=== PATIENT | male | born 1955 | race Caucasian/White ===

== ENCOUNTER 2017-03-21 11:53 | Inpatient (IN) | payer SELFPAY ==
[~2017-03-21] VITALS: Ht 185.4 cm; Wt 66.7 kg
[~2017-03-21 11:53] MED LIST: FURO40TA5 PO
[2017-03-21] MEDS ORDERED: FUROSEMIDE 40MG/4ML VIAL IV STA (13:33)
[2017-03-21] MEDS ORDERED: IPRATROPIUM/ALBUTEROL 0.5-3(2.5)MG/3ML NEB HHN ONE (13:45)
[2017-03-21 16:02] LABS: BASOPHILS % 1.5 % (0.0-2.0); EOSINOPHILS % 2.8 % (0.0-5.0); HEMATOCRIT. 41.6 % (42.0-52.0); HEMOGLOBIN. 14.1 g/dL (14.0-18.0); LYMPHOCYTES % 18.8 % (20.0-50.0); MEAN CORPUSCULAR HEMOGLOBIN 30.8 pg (28.0-32.0); MEAN CORPUSCULAR VOLUME 91.3 fL (80.0-94.0); MEAN PLATELET VOLUME 9.4 fl (7.4-10.4); MONOCYTES % 10.5 % (2.0-8.0); NEUTROPHILS % 66.4 % (40.0-76.0); PLATELET 211 x1000/uL (130-400); RED BLOOD CELL COUNT 4.56 mill/uL (4.7-6.1); RED CELL DISTRIBUTION WIDTH 14.8 % (11.6-14.6)
[2017-03-21 16:05] LABS: INR 1.2; PARTIAL THROMBOPLASTIN TIME 25.6 sec (23.4-31.0); PROTHROMBIN TIME 12.2 sec (9.4-11.6)
[2017-03-21 16:14] LABS: CARBON DIOXIDE 27 mEq/L (21-32); CHLORIDE 105 mEq/L (98-107); CREATINE KINASE 252 IU/L (39-308); TROPONIN I 0.14 ng/mL (0.00-0.04)
[2017-03-21] MEDS ORDERED: CEFTRIAXONE 1 G PREMIX 50 ML IV ONE (17:15)
[2017-03-21] MEDS ORDERED: AZITHROMYCIN 500 MG in DEXT 5% WATER 250 ML IV ONE (17:15)
[2017-03-21 21:30] VITALS: BP_SYST 111; BP_SYST 132; BP_DIAS 79; BP_DIAS 90
[2017-03-21] MEDS ORDERED: ONDANSETRON HCL 4MG/2ML VIAL IV PRN (21:30)
[2017-03-21] MEDS ORDERED: MAGNESIUM/ALUMINUM HYDROXIDE/SIMETHICONE 30ML UDC PO PRN (21:30)
[2017-03-21] MEDS ORDERED: DIPHENHYDRAMINE 50MG/ML VIAL IV PRN (21:30)
[2017-03-21] MEDS ORDERED: IPRATROPIUM/ALBUTEROL 0.5-3(2.5)MG/3ML NEB INH PRN (21:30)
[2017-03-21] MEDS ORDERED: GUAIFENESIN 200MG/10ML SUGAR FREE UDC PO PRN (21:30)
[2017-03-21] MEDS ORDERED: CLONIDINE 0.1MG TABLET PO PRN (21:30)
[2017-03-21] MEDS ORDERED: ACETAMINOPHEN 325MG TABLET PO PRN (21:30)
[2017-03-21] MEDS: FUROSEMIDE 40MG/4ML VIAL IVP SCH (22:24)
[2017-03-21] MEDS: SODIUM CHLORIDE 0.9% INJ 3ML FLUSH IVF SCH (22:25)
[2017-03-22] VITALS: BP 111/79
[2017-03-22 00:50] LABS: CLARITY URINE CLEAR (CLEAR); COLOR URINE YELLOW (YELLOW); KETONES URINE NEGATIVE (NEGATIVE); LEUKOCYTE ESTERASE URINE NEGATIVE (NEGATIVE); NITRITE URINE NEGATIVE (NEGATIVE); OCCULT BLOOD URINE NEGATIVE (NEGATIVE); PH URINE 7.5 (4.5-8.0); PROTEIN URINE NEGATIVE (NEGATIVE); SPECIFIC GRAVITY URINE 1.008 (1.005-1.030); UROBILINOGEN URINE 0.2 E.U./dL (0.2-1.0)
[2017-03-22] MEDS ORDERED: ASPI-1159 PO (01:16)
[2017-03-22 01:46] LABS: *AMPHETAMINES SCREEN URINE NEGATIVE (NEGATIVE); *BARBITURATES SCREEN URINE NEGATIVE (NEGATIVE); *BENZODIAZEPINES SCREEN URINE NEGATIVE (NEGATIVE); *COCAINE SCREEN URINE NEGATIVE (NEGATIVE); CANNABINOID URINE SCREEN NEGATIVE (NEGATIVE); METHADONE URINE SCREEN NEGATIVE (NEGATIVE); OPIATES URINE SCREEN NEGATIVE (NEGATIVE); PHENCYCLIDINE URINE SCREEN NEGATIVE (NEGATIVE)
[2017-03-22 04:00] VITALS: BP 118/82
[2017-03-22] MEDS: SODIUM CHLORIDE 0.9% INJ 3ML FLUSH IVF SCH ×2 (06:15→08:01)
[2017-03-22 08:30] VITALS: BP 136/91
[2017-03-22] MEDS ORDERED: CARVEDILOL 3.125 MG TABLET PO SCH (09:00)
[2017-03-22] MEDS ORDERED: ENOXAPARIN 40MG/0.4ML SYR SUBCUT SCH (09:00)
[2017-03-22] MEDS ORDERED: LISINOPRIL 2.5MG TABLET PO SCH (09:00)
[2017-03-22] MEDS: FUROSEMIDE 40MG/4ML VIAL IVP SCH (09:15)
[2017-03-22 12:00] VITALS: BP 122/87
[2017-03-22 16:00] VITALS: BP 127/90
[2017-03-22 16:47] VITALS: BP 127/90
[2017-03-22] MEDS ORDERED: AZITHROMYCIN 500 MG in DEXT 5% WATER 250 ML IV SCH (19:00)
== END 2017-03-22 15:45 | disposition home or self-care (01) | DRG 194 ==
LOC: ER 13:05 → 7WST 17:45 → ENRESERV 20:04
PROVIDERS: ADMIT Internal Medicine; ATTEND Internal Medicine
DX: I11.0 Hypertensive heart disease with heart failure (principal); F14.90 Cocaine use, unspecified, uncomplicated; E44.1 Mild protein-calorie malnutrition; F19.10 Other psychoactive substance abuse, uncomplicated; I50.9 Heart failure, unspecified; I50.23 Acute on chronic systolic (congestive) heart failure; Z68.1 Body mass index [BMI] 19.9 or less, adult; Z79.82 Long term (current) use of aspirin; Z79.899 Other long term (current) drug therapy
CPT/HCPCS: 36415; 71010; 80053; 80305; 81003; 82550; 83605; 83690; 83880; 84443; 84484; 85025; 85610; 85730; 87040; 87086; 93005; 93970; 94640; 96365; 96367; 96375; 99285; J0456; J0696; J1650; J1940; J7040; J7060; J7620

== ENCOUNTER 2017-05-18 09:17 | Inpatient (IN) | payer SELFPAY ==
[~2017-05-18] VITALS: Ht 180.3 cm; Wt 76.7 kg
[~2017-05-18 09:17] MED LIST changes: +ASPI-1159 PO
[2017-05-18] MEDS ORDERED: MORPHINE SULFATE 4 MG/ML CPJ (NOT FOR IM USE) IV STA (09:54)
[2017-05-18] MEDS ORDERED: ONDANSETRON HCL 4MG/2ML VIAL IV STA (09:54)
[2017-05-18] MEDS ORDERED: ASPIRIN 81MG TABLET PO STA (09:54)
[2017-05-18 10:21] LABS: BASOPHILS % 0.2 % (0.0-2.0); EOSINOPHILS % 0.2 % (0.0-5.0); HEMATOCRIT. 46.3 % (42.0-52.0); HEMOGLOBIN. 15.1 g/dL (14.0-18.0); LYMPHOCYTES % 8.1 % (20.0-50.0); MEAN CORPUSCULAR HEMOGLOBIN 29.8 pg (28.0-32.0); MEAN CORPUSCULAR VOLUME 91.2 fL (80.0-94.0); MEAN PLATELET VOLUME 8.6 fl (7.4-10.4); MONOCYTES % 12.4 % (2.0-8.0); NEUTROPHILS % 79.1 % (40.0-76.0); PLATELET 184 x1000/uL (130-400); RED BLOOD CELL COUNT 5.07 mill/uL (4.7-6.1); RED CELL DISTRIBUTION WIDTH 15.3 % (11.6-14.6)
[2017-05-18 10:38] LABS: CHLORIDE 104 mEq/L (98-107); TROPONIN I 0.02 ng/mL (0.00-0.04)
[2017-05-18 10:51] LABS: PARTIAL THROMBOPLASTIN TIME 25.4 sec (23.4-31.0); PROTHROMBIN TIME 10.8 sec (9.4-11.6)
[2017-05-18] MEDS ORDERED: FUROSEMIDE 40MG/4ML VIAL IVP ONE (11:00)
[2017-05-18] MEDS ORDERED: IPRATROPIUM/ALBUTEROL 0.5-3(2.5)MG/3ML NEB INH PRN (11:45)
[2017-05-18] MEDS ORDERED: ACETAMINOPHEN 325MG TABLET PO PRN (11:45)
[2017-05-18] MEDS ORDERED: ONDANSETRON HCL 4MG/2ML VIAL IV PRN (11:45)
[2017-05-18] MEDS ORDERED: CLONIDINE 0.1MG TABLET PO PRN (11:45)
[2017-05-18] MEDS: HYDROCODONE/ACETAMINOPHEN 5/325MG TABLET PO PRN ×2 (13:43→18:16)
[2017-05-18] MEDS ORDERED: IOHEXOL-350 100 ML BOTTLE ONE (14:16)
[2017-05-18] MEDS ORDERED: FUROSEMIDE 40MG/4ML VIAL IV SCH (16:30)
[2017-05-18 17:46] VITALS: BP 145/103
[2017-05-18] MEDS ORDERED: CARV3.1242 PO (17:52)
[2017-05-18] MEDS ORDERED: LISI2.5T47 PO (17:52)
[2017-05-18 20:00] VITALS: BP 91/53
[2017-05-18] MEDS ORDERED: ENOXAPARIN 40MG/0.4ML SYR SUBCUT SCH (21:00)
[2017-05-19] VITALS: BP 110/50
[2017-05-19 04:00] VITALS: BP 100/62
[2017-05-19] MEDS ORDERED: FUROSEMIDE 40MG/4ML VIAL IV SCH (06:00)
[2017-05-19 06:17] LABS: HEMATOCRIT. 42.9 % (42.0-52.0); HEMOGLOBIN. 14.4 g/dL (14.0-18.0); MEAN CORPUSCULAR HEMOGLOBIN 30.3 pg (28.0-32.0); MEAN CORPUSCULAR VOLUME 90.7 fL (80.0-94.0); MEAN PLATELET VOLUME 9.9 fl (7.4-10.4); PLATELET 178 x1000/uL (130-400); RED BLOOD CELL COUNT 4.73 mill/uL (4.7-6.1); RED CELL DISTRIBUTION WIDTH 15.5 % (11.6-14.6)
[2017-05-19 06:39] LABS: CHLORIDE 97 mEq/L (98-107); HDL CHOLESTEROL 67 mg/dL (40-59); LDL CHOLESTEROL 80 mg/dL (5-100); TROPONIN I 0.03 ng/mL (0.00-0.04)
[2017-05-19 08:00] VITALS: BP 104/80
[2017-05-19] MEDS ORDERED: LISINOPRIL 5MG TABLET PO SCH (09:00)
[2017-05-19 10:30] LABS: *AMPHETAMINES SCREEN URINE NEGATIVE (NEGATIVE); *BARBITURATES SCREEN URINE NEGATIVE (NEGATIVE); *BENZODIAZEPINES SCREEN URINE NEGATIVE (NEGATIVE); *COCAINE SCREEN URINE PRESUMTIVE POSITIVE (NEGATIVE); CANNABINOID URINE SCREEN NEGATIVE (NEGATIVE); METHADONE URINE SCREEN NEGATIVE (NEGATIVE); OPIATES URINE SCREEN PRESUMTIVE POSITIVE (NEGATIVE); PHENCYCLIDINE URINE SCREEN NEGATIVE (NEGATIVE)
[2017-05-19 12:00] VITALS: BP 99/74
[2017-05-19] MEDS ORDERED: ASPIRIN 81MG EC TABLET PO SCH (12:45)
[2017-05-19] MEDS ORDERED: VERAPAMIL HCL 2.5 MG/1 ML 2ML VIAL IV PRN (13:00)
[2017-05-19 15:23] LABS: PLATELET ESTIMATE NORMAL
[2017-05-19 16:00] VITALS: BP 103/60
[2017-05-19 16:38] VITALS: BP 103/60
[2017-05-19] MEDS: HYDROCODONE/ACETAMINOPHEN 5/325MG TABLET PO PRN (16:38)
[2017-05-19] MEDS ORDERED: DIGOXIN 250MCG TABLET PO SCH (18:00)
[2017-05-19] MEDS ORDERED: DILTIAZEM HCL 60MG TABLET PO SCH (18:00)
[2017-05-19] MEDS ORDERED: AMIODARONE HCL 200 MG TABLET PO SCH (21:00)
[2017-05-20] MEDS ORDERED: FUROSEMIDE 40MG/4ML VIAL IV SCH (09:00)
== END 2017-05-19 18:45 | disposition left against medical advice (07) | DRG 198 ==
LOC: ER 09:23 → 5WST 10:59 → EDBEDREQ 11:03 → ENRESERV 14:43 → CANBEDREQ 16:47 → EDBEDREQ 17:10
PROVIDERS: ADMIT Internal Medicine; ATTEND Internal Medicine
DX: I24.9 Acute ischemic heart disease, unspecified (principal); I42.9 Cardiomyopathy, unspecified; I50.9 Heart failure, unspecified; I11.0 Hypertensive heart disease with heart failure; I25.10 Atherosclerotic heart disease of native coronary artery without angina pectoris; I48.0 Paroxysmal atrial fibrillation; F14.90 Cocaine use, unspecified, uncomplicated; Z82.49 Family history of ischemic heart disease and other diseases of the circulatory system; Z86.79 Personal history of other diseases of the circulatory system; Z91.19 Patient's noncompliance with other medical treatment and regimen
CPT/HCPCS: 36415; 71045; 71275; 80053; 80061; 80305; 83690; 83880; 84484; 85025; 85610; 85730; 93005; 93306; 96374; 96375; 99285; J1650; J1940; J2270; J2405; J3490; Q9967

== ENCOUNTER 2017-05-20 19:37 | Emergency (ER) | payer SELFPAY ==
[~2017-05-20] VITALS: Ht 180.3 cm; Wt 64.0 kg
[~2017-05-20 19:37] MED LIST changes: +CARV3.1242 PO; +LISI2.5T47 PO
[2017-05-20 23:41] LABS: BASOPHILS % 0.4 % (0.0-2.0); CHLORIDE 102 mEq/L (98-107); EOSINOPHILS % 5.1 % (0.0-5.0); HEMATOCRIT. 40.7 % (42.0-52.0); HEMOGLOBIN. 13.6 g/dL (14.0-18.0); MEAN CORPUSCULAR HEMOGLOBIN 30.3 pg (28.0-32.0); MEAN CORPUSCULAR VOLUME 90.7 fL (80.0-94.0); MEAN PLATELET VOLUME 9.2 fl (7.4-10.4); MONOCYTES % 12.3 % (2.0-8.0); NEUTROPHILS % 69.2 % (40.0-76.0); PLATELET 182 x1000/uL (130-400); RED BLOOD CELL COUNT 4.48 mill/uL (4.7-6.1); RED CELL DISTRIBUTION WIDTH 15.4 % (11.6-14.6); TROPONIN I 0.06 ng/mL (0.00-0.04)
[2017-05-21] MEDS ORDERED: HYDROCODONE/ACETAMINOPHEN 5/325MG TABLET PO ONE (02:00)
[2017-05-21 02:09] VITALS: BP 163/118
== END 2017-05-21 03:11 | disposition home or self-care (01) ==
LOC: ER 19:37
DX: I48.91 Unspecified atrial fibrillation (principal); I11.0 Hypertensive heart disease with heart failure; I50.9 Heart failure, unspecified; F14.10 Cocaine abuse, uncomplicated; Z79.82 Long term (current) use of aspirin; F12.10 Cannabis abuse, uncomplicated
CPT/HCPCS: 36415; 71045; 80053; 83880; 84484; 85025; 93005; 99285

== ENCOUNTER 2018-03-08 18:04 | Inpatient (IN) | payer MEDICAID ==
[~2018-03-08] VITALS: Ht 175.3 cm; Wt 69.9 kg
[2018-03-08 20:43] LABS: BASOPHILS % 0.6 % (0.0-2.0); EOSINOPHILS % 0.3 % (0.0-5.0); HEMATOCRIT. 41.7 % (42.0-52.0); LYMPHOCYTES % 13.1 % (20.0-50.0); MEAN CORPUSCULAR VOLUME 92.3 fL (80.0-94.0); MEAN PLATELET VOLUME 9.6 fl (7.4-10.4); MONOCYTES % 8.8 % (2.0-8.0); NEUTROPHILS % 77.2 % (40.0-76.0); PLATELET 204 x1000/uL (130-400); RED BLOOD CELL COUNT 4.52 mill/uL (4.7-6.1); RED CELL DISTRIBUTION WIDTH 14.6 % (11.6-14.6)
[2018-03-08 20:49] LABS: CHLORIDE 105 mEq/L (98-107); INR 1.3; PROTHROMBIN TIME 12.9 sec (9.1-11.1)
[2018-03-08] MEDS ORDERED: PIPERACILLIN/TAZOBACTAM 3.375GM/50ML PREMIX IV STA (21:14)
[2018-03-08] MEDS ORDERED: VANCOMYCIN 1 G PREMIX 200 ML IV STA (21:14)
[2018-03-08] MEDS ORDERED: ASPIRIN 81MG TABLET PO ONE (21:15)
[2018-03-08] MEDS ORDERED: SODIUM CHLORIDE 0.9% 1000ML BAG (SEPSIS BOLUS) IV ONE (21:15)
[2018-03-08] MEDS: PIPERACILLIN/TAZ 3.375G PREMIX 50 ML IV NR ×3 (21:22→23:22)
[2018-03-08] MEDS ORDERED: FUROSEMIDE 100MG/10ML VIAL IV STA (21:52)
[2018-03-08] MEDS ORDERED: ALBUTEROL (0.083%) 2.5MG/3ML NEB HHN ONE (22:00)
[2018-03-08] MEDS ORDERED: INSULIN REGULAR (HUMULIN R) 300UNITS/3ML IV ONE (22:00)
[2018-03-08] MEDS ORDERED: CALCIUM CHLORIDE 1GM/10ML SYR IV ONE (22:00)
[2018-03-08] MEDS ORDERED: SODIUM BICARBONATE 8.4% 1 MEQ/ML 50ML SYR IV ONE (22:00)
[2018-03-08] MEDS ORDERED: DEXTROSE 50% WATER 50ML SYRINGE IV ONE (22:00)
[2018-03-08 22:40] LABS: HEPATITIS B SURFACE ANTIGEN NEGATIVE
[2018-03-08 23:10] LABS: HEPATITIS A AB IGM NEGATIVE (NEGATIVE)
[2018-03-08 23:40] VITALS: BP_SYST 114; BP_DIAS 75; BP_DIAS 78
[2018-03-09] MEDS ORDERED: GUAIFENESIN-DM 200MG-20MG/10ML UDC PO PRN (01:30)
[2018-03-09] MEDS ORDERED: ACETAMINOPHEN 325MG TABLET PO PRN (01:30)
[2018-03-09] MEDS ORDERED: DEXTROSE 50% WATER 50ML SYRINGE IV PRN (01:30)
[2018-03-09] MEDS ORDERED: IPRATROPIUM/ALBUTEROL 0.5-3(2.5)MG/3ML NEB HHN PRN (01:30)
[2018-03-09] MEDS ORDERED: HYDROCODONE/ACETAMINOPHEN 5/325MG TABLET PO PRN (01:30)
[2018-03-09] MEDS ORDERED: PIPERACILLIN/TAZ 3.375G PREMIX 50 ML IV SCH (01:30)
[2018-03-09] MEDS ORDERED: ZOLPIDEM TARTRATE 5MG TABLET PO PRN (01:30)
[2018-03-09 04:00] VITALS: BP 132/79
[2018-03-09] MEDS ORDERED: VANCOMYCIN 1 G PREMIX 200 ML IV SCH (04:00)
[2018-03-09] MEDS: BLOOD SUGAR DIAGNOSTIC STRIP TEST SCH ×4 (06:31→21:03)
[2018-03-09] MEDS: PIPERACILLIN/TAZ 3.375G PREMIX 50 ML IV SCH ×3 (06:31→17:00)
[2018-03-09 06:46] LABS: BASOPHILS % 0.7 % (0.0-2.0); HEMOGLOBIN. 12.1 g/dL (14.0-18.0); MEAN CORPUSCULAR HEMOGLOBIN 30.7 pg (28.0-32.0); MEAN CORPUSCULAR VOLUME 91.6 fL (80.0-94.0); MEAN PLATELET VOLUME 9.7 fl (7.4-10.4); MONOCYTES % 12.2 % (2.0-8.0); NEUTROPHILS % 65.1 % (40.0-76.0); PLATELET 181 x1000/uL (130-400); RED BLOOD CELL COUNT 3.93 mill/uL (4.7-6.1); RED CELL DISTRIBUTION WIDTH 14.5 % (11.6-14.6)
[2018-03-09] MEDS: INSULIN LISPRO 100 UNITS/ML SUBCUT SCH ×4 (07:07→21:00)
[2018-03-09 08:00] VITALS: BP 115/85
[2018-03-09] MEDS: FUROSEMIDE 40MG/4ML VIAL IVP SCH ×2 (08:45→17:00)
[2018-03-09] MEDS: LISINOPRIL 5MG TABLET PO SCH (08:45)
[2018-03-09] MEDS: ASPIRIN 81MG TABLET PO SCH (08:45)
[2018-03-09] MEDS: CARVEDILOL 3.125 MG TABLET PO SCH ×2 (08:46→21:00)
[2018-03-09 12:45] VITALS: BP 104/74
[2018-03-09 16:36] VITALS: BP 95/64
[2018-03-09 19:32] LABS: CREATINE KINASE MB FRACTION 3.6 ng/mL (0.5-3.6)
[2018-03-09 19:45] LABS: *AMPHETAMINES SCREEN URINE NEGATIVE (NEGATIVE); *BARBITURATES SCREEN URINE NEGATIVE (NEGATIVE); *BENZODIAZEPINES SCREEN URINE NEGATIVE (NEGATIVE); *COCAINE SCREEN URINE PRESUMTIVE POSITIVE (NEGATIVE); METHADONE URINE SCREEN NEGATIVE (NEGATIVE)
[2018-03-09 19:46] LABS: CANNABINOID URINE SCREEN NEGATIVE (NEGATIVE); OPIATES URINE SCREEN NEGATIVE (NEGATIVE); PHENCYCLIDINE URINE SCREEN NEGATIVE (NEGATIVE)
[2018-03-09 20:05] LABS: CLARITY URINE CLEAR (CLEAR); COLOR URINE YELLOW (YELLOW); KETONES URINE NEGATIVE (NEGATIVE); LEUKOCYTE ESTERASE URINE NEGATIVE (NEGATIVE); NITRITE URINE NEGATIVE (NEGATIVE); OCCULT BLOOD URINE NEGATIVE (NEGATIVE); PH URINE 6.5 (4.5-8.0); PROTEIN URINE NEGATIVE (NEGATIVE); SPECIFIC GRAVITY URINE 1.013 (1.005-1.030); UROBILINOGEN URINE 0.2 E.U./dL (0.2-1.0)
[2018-03-09] MEDS: VANCOMYCIN 1 G PREMIX 200 ML IV SCH (21:57)
[2018-03-10] MEDS: PIPERACILLIN/TAZ 3.375G PREMIX 50 ML IV SCH ×3 (00:07→11:54)
[2018-03-10] MEDS: BLOOD SUGAR DIAGNOSTIC STRIP TEST SCH ×2 (06:08→11:45)
[2018-03-10] MEDS: INSULIN LISPRO 100 UNITS/ML SUBCUT SCH ×2 (06:55→11:55)
[2018-03-10 07:36] LABS: BASOPHILS % 1.2 % (0.0-2.0); EOSINOPHILS % 1.8 % (0.0-5.0); HEMATOCRIT. 38.1 % (42.0-52.0); LYMPHOCYTES % 23.9 % (20.0-50.0); MEAN CORPUSCULAR VOLUME 91.1 fL (80.0-94.0); MEAN PLATELET VOLUME 9.8 fl (7.4-10.4); MONOCYTES % 13.1 % (2.0-8.0); PLATELET 192 x1000/uL (130-400); RED BLOOD CELL COUNT 4.19 mill/uL (4.7-6.1)
[2018-03-10 08:00] VITALS: BP 107/80
[2018-03-10] MEDS: CARVEDILOL 3.125 MG TABLET PO SCH (10:23)
[2018-03-10] MEDS: VANCOMYCIN 1 G PREMIX 200 ML IV SCH (10:23)
[2018-03-10] MEDS: FUROSEMIDE 40MG/4ML VIAL IVP SCH (10:24)
[2018-03-10] MEDS: ASPIRIN 81MG TABLET PO SCH (10:24)
[2018-03-10] MEDS: LISINOPRIL 5MG TABLET PO SCH (10:24)
[2018-03-10 12:00] VITALS: BP 90/66
[2018-03-10 14:36] VITALS: BP 116/64
[2018-03-11] MEDS ORDERED: FUROSEMIDE 40MG/4ML VIAL IVP SCH (09:00)
== END 2018-03-10 15:10 | disposition home or self-care (01) | DRG 720 ==
LOC: ER 18:04 → 5WST 22:08 → EDBEDREQ 22:11 → EDBEDREQTM 22:11 → EDBEDREQSVC 22:11 → ENRESERV 22:32
PROVIDERS: ADMIT Internal Medicine; ATTEND Internal Medicine
DX: A41.89 Other specified sepsis (principal); J96.01 Acute respiratory failure with hypoxia; I50.43 Acute on chronic combined systolic (congestive) and diastolic (congestive) heart failure; N17.9 Acute kidney failure, unspecified; R65.20 Severe sepsis without septic shock; E87.5 Hyperkalemia; R74.0 Nonspecific elevation of levels of transaminase and lactic acid dehydrogenase [LDH]; E11.9 Type 2 diabetes mellitus without complications; B97.89 Other viral agents as the cause of diseases classified elsewhere; F14.10 Cocaine abuse, uncomplicated; I07.1 Rheumatic tricuspid insufficiency; I11.0 Hypertensive heart disease with heart failure; I27.20 Pulmonary hypertension, unspecified; I42.9 Cardiomyopathy, unspecified; Z87.891 Personal history of nicotine dependence; Z91.14 Patient's other noncompliance with medication regimen; Z91.19 Patient's noncompliance with other medical treatment and regimen; Z79.82 Long term (current) use of aspirin
CPT/HCPCS: 36415; 71045; 80048; 80202; 80305; 82550; 82553; 82962; 83605; 83880; 84145; 84484; 86705; 86709; 86803; 87340; 87804; 93005; 93306; 96365; 96375; 97161; 99291; J1815; J1940; J2543; J3370; J3490; J7030; J7050; J7611

== ENCOUNTER 2018-06-05 13:29 | Inpatient (IN) | payer SELFPAY ==
[~2018-06-05] VITALS: Ht 180.3 cm; Wt 59.9 kg
[2018-06-05 16:30] LABS: BASOPHILS % 0.8 % (0.0-2.0); EOSINOPHILS % 0.8 % (0.0-5.0); HEMATOCRIT. 39.6 % (42.0-52.0); HEMOGLOBIN. 12.8 g/dL (14.0-18.0); LYMPHOCYTES % 17.4 % (20.0-50.0); MEAN CORPUSCULAR HEMOGLOBIN 28.8 pg (28.0-32.0); MEAN PLATELET VOLUME 9.1 fl (7.4-10.4); MONOCYTES % 13.1 % (2.0-8.0); NEUTROPHILS % 67.9 % (40.0-76.0); PLATELET 265 x1000/uL (130-400); RED BLOOD CELL COUNT 4.45 mill/uL (4.7-6.1); RED CELL DISTRIBUTION WIDTH 15.5 % (11.6-14.6)
[2018-06-05 16:31] LABS: CHLORIDE 106 mEq/L (98-107)
[2018-06-05] MEDS ORDERED: FUROSEMIDE 40MG/4ML VIAL IVP ONE (17:00)
[2018-06-05] MEDS ORDERED: GUAIFENESIN 200MG/10ML SUGAR FREE UDC PO PRN (17:15)
[2018-06-05] MEDS ORDERED: HYDROCODONE/ACETAMINOPHEN 5/325MG TABLET PO PRN (17:15)
[2018-06-05] MEDS ORDERED: DOCUSATE SODIUM 100MG CAPSULE PO PRN (17:15)
[2018-06-05] MEDS ORDERED: ACETAMINOPHEN 325MG TABLET PO PRN (17:15)
[2018-06-05] MEDS ORDERED: ONDANSETRON HCL 4MG/2ML INJ IV PRN (17:15)
[2018-06-05] MEDS ORDERED: DIPHENHYDRAMINE 50MG/ML VIAL IV PRN (17:15)
[2018-06-05] MEDS ORDERED: IPRATROPIUM/ALBUTEROL 0.5-3(2.5)MG/3ML NEB INH PRN (17:15)
[2018-06-05 17:32] LABS: PHOSPHORUS 3.6 mg/dL (2.5-4.9)
[2018-06-05 23:28] LABS: CREATINE KINASE 257 IU/L (39-308)
[2018-06-06 06:12] LABS: BASOPHILS % 1.1 % (0.0-2.0); EOSINOPHILS % 2.4 % (0.0-5.0); HEMOGLOBIN. 12.2 g/dL (14.0-18.0); LYMPHOCYTES % 24.6 % (20.0-50.0); MEAN CORPUSCULAR HEMOGLOBIN 28.2 pg (28.0-32.0); MEAN CORPUSCULAR VOLUME 87.7 fL (80.0-94.0); MEAN PLATELET VOLUME 9.3 fl (7.4-10.4); MONOCYTES % 12.7 % (2.0-8.0); NEUTROPHILS % 59.2 % (40.0-76.0); PLATELET 227 x1000/uL (130-400); RED BLOOD CELL COUNT 4.33 mill/uL (4.7-6.1); RED CELL DISTRIBUTION WIDTH 15.1 % (11.6-14.6)
[2018-06-06 06:20] LABS: CHLORIDE 103 mEq/L (98-107)
[2018-06-06 06:29] LABS: LDL CHOLESTEROL 90 mg/dL (5-100)
[2018-06-06 06:31] LABS: CREATINE KINASE 280 IU/L (39-308); HDL CHOLESTEROL 62 mg/dL (40-59)
[2018-06-06] MEDS ORDERED: DEXTROSE 50% WATER 50ML SYRINGE IV PRN (11:15)
[2018-06-06] MEDS ORDERED: GUAIFENESIN-DM 200MG-20MG/10ML UDC PO PRN (11:15)
[2018-06-06 12:10] LABS: CREATINE KINASE MB FRACTION 4.8 ng/mL (0.5-3.6)
[2018-06-06] MEDS ORDERED: FUROSEMIDE 40MG/4ML VIAL IV NR (12:15)
[2018-06-06 12:24] LABS: FERRITIN 34 ng/mL (22-322)
[2018-06-06] MEDS ORDERED: LISINOPRIL 5MG TABLET PO NR (12:30)
[2018-06-06] MEDS ORDERED: ENOXAPARIN 40MG/0.4ML SYR SUBCUT NR (12:30)
[2018-06-06 12:36] LABS: HEPATITIS B SURFACE ANTIGEN NEGATIVE; VITAMIN B12 SERUM 588 pg/mL (211-911)
[2018-06-06 13:05] LABS: HEPATITIS A AB IGM NEGATIVE (NEGATIVE)
[2018-06-06] MEDS: INSULIN LISPRO 100 UNITS/ML SUBCUT SCH ×3 (13:20→21:00)
[2018-06-06] MEDS: BLOOD SUGAR DIAGNOSTIC STRIP TEST SCH ×3 (13:35→21:13)
[2018-06-07 04:53] LABS: BASOPHILS % 0.7 % (0.0-2.0); EOSINOPHILS % 2.8 % (0.0-5.0); HEMATOCRIT. 40.2 % (42.0-52.0); HEMOGLOBIN. 13.2 g/dL (14.0-18.0); LYMPHOCYTES % 16.1 % (20.0-50.0); MEAN CORPUSCULAR HEMOGLOBIN 28.7 pg (28.0-32.0); MEAN CORPUSCULAR VOLUME 87.4 fL (80.0-94.0); MEAN PLATELET VOLUME 9.3 fl (7.4-10.4); NEUTROPHILS % 70.4 % (40.0-76.0); PLATELET 239 x1000/uL (130-400); RED BLOOD CELL COUNT 4.61 mill/uL (4.7-6.1); RED CELL DISTRIBUTION WIDTH 15.3 % (11.6-14.6)
[2018-06-07 04:54] LABS: CHLORIDE 106 mEq/L (98-107)
[2018-06-07 08:00] VITALS: BP 138/100
[2018-06-07 10:05] VITALS: BP 138/100
[2018-06-07] MEDS: BLOOD SUGAR DIAGNOSTIC STRIP TEST SCH ×3 (11:30→21:00)
[2018-06-07] MEDS: ASPIRIN 81MG TABLET PO SCH (11:49)
[2018-06-07] MEDS: LISINOPRIL 2.5MG TABLET PO SCH (11:49)
[2018-06-07] MEDS: ENOXAPARIN 40MG/0.4ML SYR SUBCUT SCH (11:50)
[2018-06-07] MEDS: INSULIN LISPRO 100 UNITS/ML SUBCUT SCH ×4 (11:50→21:00)
[2018-06-07] MEDS: FUROSEMIDE 40MG/4ML VIAL IV SCH (11:50)
[2018-06-07 12:00] VITALS: BP 101/67
[2018-06-07] MEDS ORDERED: PNEUMOCOCCAL 23-VAL P-SAC VAC 0.5 ML IM ONE (12:30)
[2018-06-07] MEDS ORDERED: INFLUENZA VIRUS VACCINE(AFLURIA) 0.5ML SYR IM ONE (12:30)
[2018-06-07 16:00] VITALS: BP 121/79
[2018-06-07 19:46] LABS: *AMPHETAMINES SCREEN URINE NEGATIVE (NEGATIVE); *BARBITURATES SCREEN URINE NEGATIVE (NEGATIVE); *BENZODIAZEPINES SCREEN URINE NEGATIVE (NEGATIVE); *COCAINE SCREEN URINE PRESUMTIVE POSITIVE (NEGATIVE)
[2018-06-07 19:47] LABS: CANNABINOID URINE SCREEN NEGATIVE (NEGATIVE); METHADONE URINE SCREEN NEGATIVE (NEGATIVE); OPIATES URINE SCREEN NEGATIVE (NEGATIVE); PHENCYCLIDINE URINE SCREEN NEGATIVE (NEGATIVE)
[2018-06-07 20:00] VITALS: BP 125/83
[2018-06-07] MEDS: CARVEDILOL 3.125 MG TABLET PO SCH (21:12)
[2018-06-08 00:19] VITALS: BP 117/84
[2018-06-08 04:00] VITALS: BP 113/78
[2018-06-08] MEDS: INSULIN LISPRO 100 UNITS/ML SUBCUT SCH ×2 (06:59→11:15)
[2018-06-08] MEDS: BLOOD SUGAR DIAGNOSTIC STRIP TEST SCH ×2 (06:59→11:15)
[2018-06-08 07:41] LABS: CHLORIDE 105 mEq/L (98-107)
[2018-06-08 08:00] VITALS: BP 110/71
[2018-06-08] MEDS: CARVEDILOL 3.125 MG TABLET PO SCH (08:38)
[2018-06-08] MEDS: ASPIRIN 81MG TABLET PO SCH (08:45)
[2018-06-08] MEDS: FUROSEMIDE 40MG/4ML VIAL IV SCH (08:45)
[2018-06-08] MEDS: LISINOPRIL 2.5MG TABLET PO SCH (08:46)
[2018-06-08] MEDS: ENOXAPARIN 40MG/0.4ML SYR SUBCUT SCH (11:13)
[2018-06-08] MEDS ORDERED: TAM75 MT (14:39)
[2018-06-08] MEDS ORDERED: FERR325T6 MT (14:39)
[2018-06-08 14:53] VITALS: BP 124/90
== END 2018-06-08 16:25 | disposition home or self-care (01) | DRG 194 ==
LOC: ER 13:47 → 8WST 16:56 → EDBEDREQ 16:59 → EDBEDREQTM 16:59 → ENRESERV 06-07 07:18
PROVIDERS: ADMIT Internal Medicine; ATTEND Internal Medicine
DX: I11.0 Hypertensive heart disease with heart failure (principal); I27.20 Pulmonary hypertension, unspecified; I42.9 Cardiomyopathy, unspecified; I07.1 Rheumatic tricuspid insufficiency; D50.9 Iron deficiency anemia, unspecified; E11.9 Type 2 diabetes mellitus without complications; J44.9 Chronic obstructive pulmonary disease, unspecified; E78.00 Pure hypercholesterolemia, unspecified; R74.0 Nonspecific elevation of levels of transaminase and lactic acid dehydrogenase [LDH]; E78.5 Hyperlipidemia, unspecified; J11.1 Influenza due to unidentified influenza virus with other respiratory manifestations; I50.23 Acute on chronic systolic (congestive) heart failure; I25.10 Atherosclerotic heart disease of native coronary artery without angina pectoris; Z79.84 Long term (current) use of oral hypoglycemic drugs; Z91.14 Patient's other noncompliance with medication regimen; Z91.19 Patient's noncompliance with other medical treatment and regimen; Z79.82 Long term (current) use of aspirin; Z79.899 Other long term (current) drug therapy
CPT/HCPCS: 36415; 71045; 80048; 80061; 80076; 80305; 82550; 82553; 82607; 82728; 82746; 82962; 83036; 83540; 83550; 83735; 83880; 84100; 84443; 84484; 86705; 86709; 86803; 87340; 87804; 90686; 90732; 93005; 93306; 93970; 96372; 96374; 96376; 99285; J1650; J1940

== ENCOUNTER 2019-03-12 14:00 | Emergency (ER) | payer MEDICARE, MEDICAID ==
[~2019-03-12] VITALS: Ht 180.3 cm; Wt 64.0 kg
[~2019-03-12 14:00] MED LIST changes: -ASPI-1159 PO; +ASPI-1393 PO; +FERR325T6 MT; +TAM75 MT
[2019-03-12 15:31] LABS: BASOPHILS % 0.6 % (0.0-2.0); EOSINOPHILS % 0.7 % (0.0-5.0); HEMATOCRIT. 41.6 % (42.0-52.0); HEMOGLOBIN. 13.4 g/dL (14.0-18.0); LYMPHOCYTES % 8.7 % (20.0-50.0); MEAN CORPUSCULAR HEMOGLOBIN 28.7 pg (28.0-32.0); MEAN PLATELET VOLUME 9.2 fl (7.4-10.4); MONOCYTES % 7.3 % (2.0-8.0); NEUTROPHILS % 82.7 % (40.0-76.0); PLATELET 222 x1000/uL (130-400); RED BLOOD CELL COUNT 4.68 mill/uL (4.7-6.1); RED CELL DISTRIBUTION WIDTH 14.9 % (11.6-14.6)
[2019-03-12 15:38] LABS: CHLORIDE 109 mEq/L (98-107)
[2019-03-12 15:42] LABS: ETHANOL BLOOD < 10 mg/dL
[2019-03-12 16:26] LABS: *AMPHETAMINES SCREEN URINE NEGATIVE (NEGATIVE); *BARBITURATES SCREEN URINE NEGATIVE (NEGATIVE); *BENZODIAZEPINES SCREEN URINE NEGATIVE (NEGATIVE); *COCAINE SCREEN URINE PRESUMTIVE POSITIVE (NEGATIVE); CANNABINOID URINE SCREEN NEGATIVE (NEGATIVE); METHADONE URINE SCREEN NEGATIVE (NEGATIVE); PHENCYCLIDINE URINE SCREEN NEGATIVE (NEGATIVE)
[2019-03-12 16:27] LABS: OPIATES URINE SCREEN NEGATIVE (NEGATIVE)
[2019-03-12 17:43] VITALS: BP 127/68
== END 2019-03-12 17:45 | disposition home or self-care (01) ==
LOC: ER 14:19
DX: F14.129 Cocaine abuse with intoxication, unspecified (principal); R56.9 Unspecified convulsions; I50.9 Heart failure, unspecified; Z79.82 Long term (current) use of aspirin
CPT/HCPCS: 36415; 71045; 80305; 80320; 99284; G0480

== ENCOUNTER 2019-12-10 15:23 | Inpatient (IN) | payer MEDICARE, MEDICAID ==
[~2019-12-10] VITALS: Ht 180.3 cm; Wt 62.7 kg
[~2019-12-10 15:23] MED LIST changes: -ASPI-1393 PO; +ASPI-1497 PO
[2019-12-10 16:25] LABS: BASOPHILS % 0.4 % (0.0-2.0); EOSINOPHILS % 0.2 % (0.0-5.0); HEMATOCRIT. 39.2 % (42.0-52.0); HEMOGLOBIN. 12.9 g/dL (14.0-18.0); LYMPHOCYTES % 18.3 % (20.0-50.0); MEAN CORPUSCULAR VOLUME 88.2 fL (80.0-94.0); MONOCYTES % 13.5 % (2.0-8.0); NEUTROPHILS % 67.6 % (40.0-76.0); PLATELET 140 x1000/uL (130-400); RED BLOOD CELL COUNT 4.44 mill/uL (4.7-6.1); RED CELL DISTRIBUTION WIDTH 14.6 % (11.6-14.6)
[2019-12-10 16:32] LABS: CHLORIDE 105 mEq/L (98-107)
[2019-12-10] MEDS ORDERED: FUROSEMIDE 20MG/2ML VIAL IVP ONE (17:15)
[2019-12-10 22:45] VITALS: BP 116/85
[2019-12-10] MEDS ORDERED: HYDROCODONE/ACETAMINOPHEN 5/325MG TABLET PO PRN (23:45)
[2019-12-11] VITALS: BP 116/85
[2019-12-11 04:00] VITALS: BP_SYST 116; BP_SYST 99; BP_DIAS 77; BP_DIAS 85
[2019-12-11 04:49] LABS: CHLORIDE 107 mEq/L (98-107)
[2019-12-11 05:42] LABS: BASOPHILS % 0.5 % (0.0-2.0); EOSINOPHILS % 1.3 % (0.0-5.0); HEMATOCRIT. 37.5 % (42.0-52.0); HEMOGLOBIN. 12.3 g/dL (14.0-18.0); LYMPHOCYTES % 25.5 % (20.0-50.0); MEAN CORPUSCULAR VOLUME 88.2 fL (80.0-94.0); MEAN PLATELET VOLUME 10.3 fl (7.4-10.4); MONOCYTES % 13.7 % (2.0-8.0); PLATELET 133 x1000/uL (130-400); RED BLOOD CELL COUNT 4.25 mill/uL (4.7-6.1); RED CELL DISTRIBUTION WIDTH 14.5 % (11.6-14.6)
[2019-12-11 08:00] VITALS: BP 112/54
[2019-12-11] MEDS: FUROSEMIDE 40MG/4ML VIAL IVP SCH ×2 (08:56→17:25)
[2019-12-11] MEDS: LISINOPRIL 20MG TABLET PO SCH (08:56)
[2019-12-11] MEDS: CARVEDILOL 12.5MG TABLET PO SCH ×2 (08:58→20:28)
[2019-12-11] MEDS: ASPIRIN 325MG EC TABLET PO SCH (08:58)
[2019-12-11] MEDS: OMEPRAZOLE 20MG CAPSULE EXTENDED RELEASE PO SCH (08:59)
[2019-12-11] MEDS: ENOXAPARIN 40MG/0.4ML SYR SUBCUT SCH (08:59)
[2019-12-11] MEDS ORDERED: FUROSEMIDE 40MG/4ML VIAL IVP SCH (09:00)
[2019-12-11 12:00] VITALS: BP 112/54
[2019-12-11 15:38] LABS: *AMPHETAMINES SCREEN URINE NEGATIVE (NEGATIVE); *BARBITURATES SCREEN URINE NEGATIVE (NEGATIVE); *BENZODIAZEPINES SCREEN URINE NEGATIVE (NEGATIVE); *COCAINE SCREEN URINE PRESUMTIVE POSITIVE (NEGATIVE)
[2019-12-11 15:39] LABS: METHADONE URINE SCREEN NEGATIVE (NEGATIVE); OPIATES URINE SCREEN NEGATIVE (NEGATIVE); PHENCYCLIDINE URINE SCREEN NEGATIVE (NEGATIVE)
[2019-12-11 15:40] LABS: CANNABINOID URINE SCREEN NEGATIVE (NEGATIVE)
[2019-12-11 16:00] VITALS: BP 100/68
[2019-12-11 20:17] VITALS: BP 99/69
[2019-12-12] VITALS: BP 94/68
[2019-12-12 04:00] VITALS: BP 96/67
[2019-12-12] MEDS: OMEPRAZOLE 20MG CAPSULE EXTENDED RELEASE PO SCH (06:48)
[2019-12-12] MEDS: LISINOPRIL 20MG TABLET PO SCH (08:56)
[2019-12-12] MEDS: CARVEDILOL 12.5MG TABLET PO SCH ×2 (08:58→21:00)
[2019-12-12] MEDS: ASPIRIN 325MG EC TABLET PO SCH (09:14)
[2019-12-12] MEDS: ENOXAPARIN 40MG/0.4ML SYR SUBCUT SCH (09:14)
[2019-12-12] MEDS: FUROSEMIDE 40MG/4ML VIAL IVP SCH (09:14)
[2019-12-12 12:00] VITALS: BP 104/74
[2019-12-12 15:55] VITALS: BP 98/76
[2019-12-12 20:00] VITALS: BP 100/69
[2019-12-13] VITALS: BP 120/76
[2019-12-13 04:00] VITALS: BP 113/68
[2019-12-13 08:00] VITALS: BP 124/75
[2019-12-13] MEDS ORDERED: FUROSEMIDE 40MG/4ML VIAL IVP SCH (08:00)
[2019-12-13] MEDS: ASPIRIN 325MG EC TABLET PO SCH (08:32)
[2019-12-13] MEDS: CARVEDILOL 12.5MG TABLET PO SCH (08:32)
[2019-12-13] MEDS: ENOXAPARIN 40MG/0.4ML SYR SUBCUT SCH (08:33)
[2019-12-13] MEDS ORDERED: FAMOTIDINE 20MG TABLET PO SCH (09:00)
[2019-12-13] MEDS ORDERED: LISINOPRIL 10MG TABLET PO SCH ×2 (09:00→13:30)
[2019-12-13] MEDS ORDERED: COR12 PO (11:56)
[2019-12-13] MEDS ORDERED: FURO40TA5 PO (11:56)
[2019-12-13 12:27] VITALS: BP 121/70
== END 2019-12-13 15:20 | disposition home or self-care (01) | DRG 291 ==
LOC: ER 15:23 → 7WST 18:49 → EDBEDREQ 19:17 → EDBEDREQTM 19:17 → ENRESERV 21:18 → 5WST 12-11 21:02
PROVIDERS: ADMIT Internal Medicine; ATTEND Internal Medicine
DX: I11.0 Hypertensive heart disease with heart failure (principal); N17.0 Acute kidney failure with tubular necrosis; I24.8 Other forms of acute ischemic heart disease; E87.1 Hypo-osmolality and hyponatremia; Z68.1 Body mass index [BMI] 19.9 or less, adult; I50.23 Acute on chronic systolic (congestive) heart failure; I42.9 Cardiomyopathy, unspecified; D64.9 Anemia, unspecified; E11.9 Type 2 diabetes mellitus without complications; E78.5 Hyperlipidemia, unspecified; I27.20 Pulmonary hypertension, unspecified; I95.9 Hypotension, unspecified; F14.90 Cocaine use, unspecified, uncomplicated; Z79.82 Long term (current) use of aspirin; Z79.899 Other long term (current) drug therapy; Z79.84 Long term (current) use of oral hypoglycemic drugs; Z86.19 Personal history of other infectious and parasitic diseases; G90.8 Other disorders of autonomic nervous system
CPT/HCPCS: 36415; 71045; 80048; 80053; 80305; 83880; 84484; 85025; 87426; 93005; 93306; 97162; 99285; J1650; J1940

== ENCOUNTER 2021-01-15 13:33 | Inpatient (IN) | payer MEDICARE, MEDICAID ==
[~2021-01-15] VITALS: Ht 153.9 cm; Wt 75.8 kg
[~2021-01-15 13:33] MED LIST changes: -CARV3.1242 PO; +COR12 PO; -TAM75 MT
[2021-01-15 14:46] LABS: BASOPHILS % 0.4 % (0.0-2.0); EOSINOPHILS % 0.3 % (0.0-5.0); HEMATOCRIT. 46.3 % (42.0-52.0); HEMOGLOBIN. 15.3 g/dL (14.0-18.0); MEAN CORPUSCULAR HEMOGLOBIN 31.5 pg (28.0-32.0); MEAN CORPUSCULAR VOLUME 95.3 fL (80.0-94.0); MEAN PLATELET VOLUME 9.2 fl (7.4-10.4); MONOCYTES % 9.5 % (2.0-8.0); NEUTROPHILS % 77.8 % (40.0-76.0); PLATELET 201 x1000/uL (130-400); RED BLOOD CELL COUNT 4.86 mill/uL (4.7-6.1); RED CELL DISTRIBUTION WIDTH 17.7 % (11.6-14.6)
[2021-01-15 14:54] LABS: CHLORIDE 106 mEq/L (98-107)
[2021-01-15] MEDS ORDERED: FUROSEMIDE 40MG/4ML VIAL IVP ONE (15:15)
[2021-01-15 20:00] VITALS: BP 158/95
[2021-01-15] MEDS ORDERED: CLONIDINE 0.1MG TABLET PO PRN (21:00)
[2021-01-15] MEDS ORDERED: MAGNESIUM/ALUMINUM HYDROXIDE/SIMETHICONE 30ML UDC PO PRN (21:00)
[2021-01-15] MEDS ORDERED: ZOLPIDEM TARTRATE 5MG TABLET PO PRN (21:00)
[2021-01-15] MEDS ORDERED: ACETAMINOPHEN 325MG TABLET PO PRN ×2 (21:00)
[2021-01-15] MEDS ORDERED: ONDANSETRON HCL 4MG/2ML INJ IV PRN (21:00)
[2021-01-15] MEDS ORDERED: MAGNESIUM HYDROXIDE 400MG/5ML 30ML UDC PO PRN (21:00)
[2021-01-15] MEDS: INSULIN LISPRO 100 UNITS/ML SUBCUT SCH (21:00)
[2021-01-15] MEDS ORDERED: DIPHENHYDRAMINE 50MG/ML VIAL IV PRN (21:00)
[2021-01-15] MEDS: BLOOD SUGAR DIAGNOSTIC STRIP TEST SCH (21:00)
[2021-01-15] MEDS ORDERED: DEXTROSE 50% WATER 50ML SYRINGE IV PRN (21:00)
[2021-01-15] MEDS: SODIUM CHLORIDE 0.9% INJ 3ML FLUSH IVF SCH (22:39)
[2021-01-15] MEDS: FAMOTIDINE 20MG TABLET PO SCH (22:40)
[2021-01-15] MEDS: CARVEDILOL 12.5MG TABLET PO SCH (22:40)
[2021-01-15] MEDS: FUROSEMIDE 40MG/4ML VIAL IVP SCH (22:40)
[2021-01-15] MEDS: LISINOPRIL 10MG TABLET PO SCH (22:41)
[2021-01-15] MEDS: ENOXAPARIN 40MG/0.4ML SYR SUBCUT SCH (22:43)
[2021-01-16] VITALS (7 sets, daily range): BP systolic 98–158; BP diastolic 65–99
[2021-01-16] MEDS ORDERED: SACU1TAB PO (01:55)
[2021-01-16] MEDS ORDERED: POTA-189 PO (01:56)
[2021-01-16] MEDS: INSULIN LISPRO 100 UNITS/ML SUBCUT SCH ×4 (06:16→20:43)
[2021-01-16] MEDS: BLOOD SUGAR DIAGNOSTIC STRIP TEST SCH ×4 (06:17→20:43)
[2021-01-16] MEDS: SODIUM CHLORIDE 0.9% INJ 3ML FLUSH IVF SCH ×3 (06:27→21:20)
[2021-01-16] MEDS: ASPIRIN 81MG EC TABLET PO SCH (09:07)
[2021-01-16] MEDS: LISINOPRIL 10MG TABLET PO SCH ×2 (09:07→21:19)
[2021-01-16] MEDS: FUROSEMIDE 40MG/4ML VIAL IVP SCH ×2 (09:07→21:18)
[2021-01-16] MEDS: CARVEDILOL 12.5MG TABLET PO SCH ×2 (09:07→21:19)
[2021-01-16] MEDS ORDERED: INFLUENZA VACCINE 05/PF 0.5 ML SYRINGE IM ONE (12:00)
[2021-01-16] MEDS: FAMOTIDINE 20MG TABLET PO SCH (21:18)
[2021-01-16] MEDS: ENOXAPARIN 40MG/0.4ML SYR SUBCUT SCH (21:18)
[2021-01-17] VITALS: BP 114/84
[2021-01-17 04:00] VITALS: BP 110/68
[2021-01-17] MEDS: SODIUM CHLORIDE 0.9% INJ 3ML FLUSH IVF SCH ×2 (06:49→14:09)
[2021-01-17] MEDS: BLOOD SUGAR DIAGNOSTIC STRIP TEST SCH ×3 (07:37→17:16)
[2021-01-17] MEDS: INSULIN LISPRO 100 UNITS/ML SUBCUT SCH ×3 (07:37→17:17)
[2021-01-17 08:00] VITALS: BP 122/87
[2021-01-17] MEDS: FUROSEMIDE 40MG/4ML VIAL IVP SCH (08:14)
[2021-01-17] MEDS: ASPIRIN 81MG EC TABLET PO SCH (08:14)
[2021-01-17] MEDS: CARVEDILOL 12.5MG TABLET PO SCH (08:15)
[2021-01-17] MEDS: LISINOPRIL 10MG TABLET PO SCH (08:15)
[2021-01-17 11:54] VITALS: BP 107/66
[2021-01-17 16:00] VITALS: BP 105/89
[2021-01-17 16:33] VITALS: BP 107/66
== END 2021-01-17 18:50 | disposition home or self-care (01) | DRG 291 ==
LOC: ER 13:33 → 8WST 17:02 → EDBEDREQ 17:07 → EDBEDREQTM 17:07 → ENRESERV 18:39
PROVIDERS: ADMIT Internal Medicine; ATTEND Internal Medicine
DX: I13.0 Hypertensive heart and chronic kidney disease with heart failure and stage 1 through stage 4 chronic kidney disease, or unspecified chronic kidney disease (principal); I50.23 Acute on chronic systolic (congestive) heart failure; E43 Unspecified severe protein-calorie malnutrition; I42.9 Cardiomyopathy, unspecified; I27.20 Pulmonary hypertension, unspecified; I48.91 Unspecified atrial fibrillation; Z20.822 Contact with and (suspected) exposure to COVID-19; N18.2 Chronic kidney disease, stage 2 (mild); E87.5 Hyperkalemia; Z59.00 Homelessness unspecified; Z87.891 Personal history of nicotine dependence; Z91.19 Patient's noncompliance with other medical treatment and regimen; Z79.899 Other long term (current) drug therapy; Z79.82 Long term (current) use of aspirin; Z82.49 Family history of ischemic heart disease and other diseases of the circulatory system; Z68.32 Body mass index [BMI] 32.0-32.9, adult
CPT/HCPCS: 36415; 71045; 80053; 82962; 83036; 83880; 84132; 84484; 85025; 87426; 90686; 93005; 93306; 93970; 99285; J1650; J1940

== ENCOUNTER 2021-02-22 16:33 | Inpatient (IN) | payer MEDICARE, MEDICAID ==
[~2021-02-22] VITALS: Ht 180.3 cm; Wt 69.1 kg
[~2021-02-22 16:33] MED LIST changes: -LISI2.5T47 PO; +POTA-189 PO; +SACU1TAB PO
[2021-02-22] MEDS ORDERED: FUROSEMIDE 40MG/4ML VIAL IVP NR (17:15)
[2021-02-22 17:34] LABS: BASOPHILS % 0.7 % (0.0-2.0); EOSINOPHILS % 1.6 % (0.0-5.0); HEMATOCRIT. 42.8 % (42.0-52.0); HEMOGLOBIN. 13.9 g/dL (14.0-18.0); LYMPHOCYTES % 13.5 % (20.0-50.0); MEAN CORPUSCULAR HEMOGLOBIN 30.8 pg (28.0-32.0); MEAN CORPUSCULAR VOLUME 95.2 fL (80.0-94.0); MEAN PLATELET VOLUME 8.9 fl (7.4-10.4); MONOCYTES % 10.8 % (2.0-8.0); NEUTROPHILS % 73.4 % (40.0-76.0); PLATELET 179 x1000/uL (130-400); RED CELL DISTRIBUTION WIDTH 15.6 % (11.6-14.6)
[2021-02-22 17:38] LABS: CHLORIDE 107 mEq/L (98-107)
[2021-02-23 00:15] VITALS: BP 134/95
[2021-02-23] MEDS ORDERED: CLONIDINE 0.1MG TABLET PO PRN (01:30)
[2021-02-23] MEDS ORDERED: HYDROCODONE/ACETAMINOPHEN 5/325MG TABLET PO PRN (01:30)
[2021-02-23] MEDS ORDERED: NALOXONE HCL 0.4 MG/ML 1ML VIAL IV PRN (02:00)
[2021-02-23] MEDS ORDERED: ACETAMINOPHEN 325MG TABLET PO PRN (02:00)
[2021-02-23] MEDS: IPRATROPIUM/ALBUTEROL 0.5-3(2.5)MG/3ML NEB HHN SCH ×4 (03:33→20:51)
[2021-02-23 04:02] VITALS: BP 121/87
[2021-02-23 06:41] LABS: HEMOGLOBIN. 12.5 g/dL (14.0-18.0); LYMPHOCYTES % 18.2 % (20.0-50.0); MEAN CORPUSCULAR VOLUME 93.8 fL (80.0-94.0); MEAN PLATELET VOLUME 9.5 fl (7.4-10.4); MONOCYTES % 11.4 % (2.0-8.0); NEUTROPHILS % 66.4 % (40.0-76.0); PLATELET 156 x1000/uL (130-400); RED BLOOD CELL COUNT 4.05 mill/uL (4.7-6.1); RED CELL DISTRIBUTION WIDTH 15.3 % (11.6-14.6)
[2021-02-23 08:19] VITALS: BP 122/92
[2021-02-23] MEDS: FUROSEMIDE 40MG/4ML VIAL IVP SCH ×2 (08:48→20:26)
[2021-02-23] MEDS: ASPIRIN 81MG EC TABLET PO SCH (08:48)
[2021-02-23] MEDS ORDERED: ENOXAPARIN 40MG/0.4ML SYR SUBCUT SCH (09:00)
[2021-02-23] MEDS ORDERED: MEDICATION NOT ON FORMULARY EA (Sacubitril/Valsartan (Entresto 24 mg-26 mg Tablet) 1 EAC PO SCH (09:00)
[2021-02-23] MEDS ORDERED: CARVEDILOL 12.5MG TABLET PO SCH (09:00)
[2021-02-23 12:26] VITALS: BP 102/74
[2021-02-23 16:10] VITALS: BP 128/70
[2021-02-23] MEDS: AMIODARONE HCL 200 MG TABLET PO SCH (17:23)
[2021-02-23] MEDS: APIXABAN 5 MG TABLET PO SCH (17:23)
[2021-02-23 20:00] VITALS: BP 114/85
[2021-02-23] MEDS: CARVEDILOL 6.25 MG TABLET PO SCH (20:26)
[2021-02-24] VITALS: BP 100/75
[2021-02-24] MEDS: IPRATROPIUM/ALBUTEROL 0.5-3(2.5)MG/3ML NEB HHN SCH ×5 (03:20→21:24)
[2021-02-24 04:00] VITALS: BP 117/83
[2021-02-24 08:12] VITALS: BP 126/88
[2021-02-24 12:18] VITALS: BP 110/72
[2021-02-24] MEDS: ASPIRIN 81MG EC TABLET PO SCH (12:58)
[2021-02-24] MEDS: CARVEDILOL 6.25 MG TABLET PO SCH ×2 (12:59→20:55)
[2021-02-24] MEDS: APIXABAN 5 MG TABLET PO SCH ×2 (12:59→16:30)
[2021-02-24] MEDS: AMIODARONE HCL 200 MG TABLET PO SCH ×3 (13:00→16:30)
[2021-02-24] MEDS: FUROSEMIDE 40MG/4ML VIAL IVP SCH ×2 (13:00→20:55)
[2021-02-24 16:07] VITALS: BP 128/78
[2021-02-24 20:00] VITALS: BP 122/96
[2021-02-25] VITALS: BP 110/72
[2021-02-25 04:00] VITALS: BP 109/82
[2021-02-25 06:17] LABS: BASOPHILS % 0.7 % (0.0-2.0); EOSINOPHILS % 5.2 % (0.0-5.0); HEMATOCRIT. 39.9 % (42.0-52.0); HEMOGLOBIN. 13.3 g/dL (14.0-18.0); LYMPHOCYTES % 18.8 % (20.0-50.0); MEAN CORPUSCULAR HEMOGLOBIN 31.6 pg (28.0-32.0); MEAN CORPUSCULAR VOLUME 94.4 fL (80.0-94.0); MEAN PLATELET VOLUME 9.5 fl (7.4-10.4); MONOCYTES % 11.3 % (2.0-8.0); PLATELET 156 x1000/uL (130-400); RED BLOOD CELL COUNT 4.22 mill/uL (4.7-6.1); RED CELL DISTRIBUTION WIDTH 15.5 % (11.6-14.6)
[2021-02-25] MEDS: IPRATROPIUM/ALBUTEROL 0.5-3(2.5)MG/3ML NEB HHN SCH ×3 (08:31→17:29)
[2021-02-25 08:39] VITALS: BP 128/100
[2021-02-25] MEDS: FUROSEMIDE 40MG/4ML VIAL IVP SCH ×2 (08:42→21:46)
[2021-02-25] MEDS: CARVEDILOL 6.25 MG TABLET PO SCH ×2 (08:42→21:46)
[2021-02-25] MEDS: ASPIRIN 81MG EC TABLET PO SCH (08:42)
[2021-02-25] MEDS: AMIODARONE HCL 200 MG TABLET PO SCH ×3 (08:43→17:32)
[2021-02-25] MEDS: APIXABAN 5 MG TABLET PO SCH ×2 (08:46→17:32)
[2021-02-25 12:21] VITALS: BP 118/87
[2021-02-25 16:40] VITALS: BP 108/73
[2021-02-25] MEDS ORDERED: METOLAZONE 2.5MG TABLET PO NR (17:45)
[2021-02-25 20:00] VITALS: BP 110/70
[2021-02-25 20:29] LABS: *AMPHETAMINES SCREEN URINE NEGATIVE (NEGATIVE); *BARBITURATES SCREEN URINE NEGATIVE (NEGATIVE); *BENZODIAZEPINES SCREEN URINE NEGATIVE (NEGATIVE); *COCAINE SCREEN URINE PRESUMTIVE POSITIVE (NEGATIVE)
[2021-02-25 20:30] LABS: CANNABINOID URINE SCREEN NEGATIVE (NEGATIVE); METHADONE URINE SCREEN NEGATIVE (NEGATIVE); OPIATES URINE SCREEN NEGATIVE (NEGATIVE); PHENCYCLIDINE URINE SCREEN NEGATIVE (NEGATIVE)
[2021-02-26] VITALS: BP 113/68
[2021-02-26 04:00] VITALS: BP 106/76
[2021-02-26 08:00] VITALS: BP 122/87
[2021-02-26] MEDS: IPRATROPIUM/ALBUTEROL 0.5-3(2.5)MG/3ML NEB HHN SCH ×2 (08:13→13:26)
[2021-02-26] MEDS: FUROSEMIDE 40MG/4ML VIAL IVP SCH (09:08)
[2021-02-26] MEDS: APIXABAN 5 MG TABLET PO SCH (09:10)
[2021-02-26] MEDS: CARVEDILOL 6.25 MG TABLET PO SCH (09:10)
[2021-02-26] MEDS: ASPIRIN 81MG EC TABLET PO SCH (09:10)
[2021-02-26] MEDS: AMIODARONE HCL 200 MG TABLET PO SCH ×2 (09:10→12:50)
[2021-02-26] MEDS ORDERED: DIATR MEGLU/DIATRIZOATE SOLN 30ML PO NR (11:00)
[2021-02-26 12:00] VITALS: BP 102/70
[2021-02-26] MEDS ORDERED: IOHEXOL-300 100 ML BOTTLE ONE (15:13)
[2021-02-26] MEDS ORDERED: LACTULOSE 20G/30ML UDC PO NR (15:15)
[2021-02-26] MEDS ORDERED: FURO40TA5 PO ×2 (15:32→16:05)
[2021-02-26 16:00] VITALS: BP 114/90
[2021-02-26] MEDS ORDERED: COR6 PO (16:05)
[2021-02-26] MEDS ORDERED: APIX2.5T PO (16:05)
[2021-02-26] MEDS ORDERED: DOCU-138 MT (16:05)
[2021-02-26] MEDS ORDERED: AMI2 PO (16:05)
[2021-02-26] MEDS ORDERED: LOSA25TA26 MT (16:05)
[2021-02-26 16:19] LABS: INR 1.3; PROTHROMBIN TIME 13.6 sec (9.6-11.0)
[2021-02-26 16:47] VITALS: BP 114/90
[2021-02-26] MEDS ORDERED: APIXABAN 2.5 MG TABLET PO SCH (17:00)
[2021-02-26] MEDS ORDERED: AMIODARONE HCL 200 MG TABLET PO SCH (17:50)
== END 2021-02-26 17:45 | disposition home or self-care (01) | DRG 291 ==
LOC: ER 16:33 → 6WST 19:06 → ENRESERV 22:21
PROVIDERS: ADMIT Internal Medicine; ATTEND Internal Medicine
DX: I11.0 Hypertensive heart disease with heart failure (principal); J96.01 Acute respiratory failure with hypoxia; I50.23 Acute on chronic systolic (congestive) heart failure; E43 Unspecified severe protein-calorie malnutrition; K76.6 Portal hypertension; I42.9 Cardiomyopathy, unspecified; F17.200 Nicotine dependence, unspecified, uncomplicated; I48.91 Unspecified atrial fibrillation; N28.9 Disorder of kidney and ureter, unspecified; I27.20 Pulmonary hypertension, unspecified; J44.9 Chronic obstructive pulmonary disease, unspecified; K74.60 Unspecified cirrhosis of liver; F14.90 Cocaine use, unspecified, uncomplicated; Z79.82 Long term (current) use of aspirin; Z79.899 Other long term (current) drug therapy; Z82.49 Family history of ischemic heart disease and other diseases of the circulatory system; Z59.00 Homelessness unspecified; Z68.21 Body mass index [BMI] 21.0-21.9, adult; Z91.19 Patient's noncompliance with other medical treatment and regimen; Z71.51 Drug abuse counseling and surveillance of drug abuser
CPT/HCPCS: 36415; 71045; 74177; 76700; 80048; 80053; 80305; 83880; 84484; 85025; 93005; 93306; 94640; 99285; J1650; J1940; Q9963; Q9967

== ENCOUNTER 2021-04-05 12:17 | Inpatient (IN) | payer MEDICARE, MEDICAID ==
[~2021-04-05] VITALS: Ht 180.3 cm; Wt 87.1 kg
[~2021-04-05 12:17] MED LIST changes: +AMI2 PO; +APIX2.5T PO; +COR6 PO; +DOCU-138 MT; +LOSA25TA26 MT; -SACU1TAB PO
[2021-04-05 17:23] LABS: CHLORIDE 111 mEq/L (98-107)
[2021-04-05 17:24] LABS: BASOPHILS % 0.8 % (0.0-2.0); EOSINOPHILS % 1.5 % (0.0-5.0); HEMATOCRIT. 45.5 % (42.0-52.0); HEMOGLOBIN. 14.5 g/dL (14.0-18.0); MEAN CORPUSCULAR HEMOGLOBIN 29.8 pg (28.0-32.0); MEAN CORPUSCULAR VOLUME 93.5 fL (80.0-94.0); MEAN PLATELET VOLUME 8.8 fl (7.4-10.4); MONOCYTES % 9.7 % (2.0-8.0); PLATELET 247 x1000/uL (130-400); RED BLOOD CELL COUNT 4.86 mill/uL (4.7-6.1); RED CELL DISTRIBUTION WIDTH 15.8 % (11.6-14.6)
[2021-04-05] MEDS ORDERED: FUROSEMIDE 40MG/4ML VIAL IVP ONE (17:45)
[2021-04-05] MEDS ORDERED: ASPIRIN 81MG TABLET PO ONE (19:15)
[2021-04-05] MEDS ORDERED: MAGNESIUM/ALUMINUM HYDROXIDE/SIMETHICONE 30ML UDC PO PRN (19:30)
[2021-04-05] MEDS ORDERED: CLONIDINE 0.1MG TABLET PO PRN (19:30)
[2021-04-05] MEDS ORDERED: GUAIFENESIN 200MG/10ML SUGAR FREE UDC PO PRN (19:30)
[2021-04-05] MEDS ORDERED: ONDANSETRON HCL 4MG/2ML INJ IV PRN (19:30)
[2021-04-05] MEDS ORDERED: DIPHENHYDRAMINE 50MG/ML VIAL IV PRN (19:30)
[2021-04-05] MEDS ORDERED: ACETAMINOPHEN 325MG TABLET PO PRN ×2 (19:30)
[2021-04-05] MEDS ORDERED: ZOLPIDEM TARTRATE 5MG TABLET PO PRN (19:30)
[2021-04-05] MEDS: FUROSEMIDE 40MG/4ML VIAL IVP SCH (20:56)
[2021-04-05] MEDS: SODIUM CHLORIDE 0.9% INJ 3ML FLUSH IVF SCH (22:19)
[2021-04-06] MEDS: IPRATROPIUM/ALBUTEROL 0.5-3(2.5)MG/3ML NEB HHN PRN ×2 (02:28→08:57)
[2021-04-06] MEDS ORDERED: LISI10TA26 PO (02:33)
[2021-04-06] MEDS ORDERED: APIX5TAB PO (02:33)
[2021-04-06] MEDS ORDERED: OMEP10CA5 PO (02:33)
[2021-04-06] MEDS ORDERED: FURO-151 PO (02:33)
[2021-04-06 02:36] VITALS: BP 118/72
[2021-04-06 04:00] VITALS: BP 109/88
[2021-04-06] MEDS ORDERED: INFLUENZA VACCINE 05/PF 0.5 ML SYRINGE IM ONE (04:15)
[2021-04-06] MEDS: FUROSEMIDE 40MG/4ML VIAL IVP SCH ×2 (06:45→17:00)
[2021-04-06] MEDS: SODIUM CHLORIDE 0.9% INJ 3ML FLUSH IVF SCH ×3 (06:45→22:17)
[2021-04-06 08:00] VITALS: BP 118/83
[2021-04-06] MEDS ORDERED: LISINOPRIL 10MG TABLET PO SCH (09:00)
[2021-04-06] MEDS ORDERED: AMIODARONE HCL 200 MG TABLET PO SCH (09:00)
[2021-04-06] MEDS ORDERED: APIXABAN 2.5 MG TABLET PO SCH (09:00)
[2021-04-06] MEDS: APIXABAN 5 MG TABLET PO SCH ×2 (09:26→17:00)
[2021-04-06] MEDS: ASPIRIN 81MG EC TABLET PO SCH (09:26)
[2021-04-06 12:00] VITALS: BP 121/71
[2021-04-06 12:47] LABS: *AMPHETAMINES SCREEN URINE NEGATIVE (NEGATIVE); *BARBITURATES SCREEN URINE NEGATIVE (NEGATIVE); *BENZODIAZEPINES SCREEN URINE NEGATIVE (NEGATIVE)
[2021-04-06 12:48] LABS: *COCAINE SCREEN URINE PRESUMTIVE POSITIVE (NEGATIVE); CANNABINOID URINE SCREEN NEGATIVE (NEGATIVE); METHADONE URINE SCREEN NEGATIVE (NEGATIVE); OPIATES URINE SCREEN NEGATIVE (NEGATIVE); PHENCYCLIDINE URINE SCREEN NEGATIVE (NEGATIVE)
[2021-04-06] MEDS: SPIRONOLACTONE 25MG TABLET PO SCH (13:03)
[2021-04-06] MEDS: GUAIFENESIN/CODEINE 200-20MG/10ML UDC PO PRN ×2 (15:37→21:14)
[2021-04-06 16:00] VITALS: BP 118/75
[2021-04-06 20:00] VITALS: BP 109/61
[2021-04-06] MEDS: ATORVASTATIN CALCIUM 20MG TABLET PO SCH (20:39)
[2021-04-06] MEDS: CARVEDILOL 6.25 MG TABLET PO SCH (21:00)
[2021-04-07] VITALS: BP 107/68
[2021-04-07 04:00] VITALS: BP 111/97
[2021-04-07] MEDS: FUROSEMIDE 40MG/4ML VIAL IVP SCH (06:35)
[2021-04-07] MEDS: SODIUM CHLORIDE 0.9% INJ 3ML FLUSH IVF SCH ×3 (06:40→21:40)
[2021-04-07 08:00] VITALS: BP 94/51
[2021-04-07] MEDS: CARVEDILOL 6.25 MG TABLET PO SCH (09:00)
[2021-04-07] MEDS: ASPIRIN 81MG EC TABLET PO SCH (09:15)
[2021-04-07] MEDS: APIXABAN 5 MG TABLET PO SCH ×2 (09:16→16:52)
[2021-04-07] MEDS: AMIODARONE HCL 200 MG TABLET PO SCH (09:16)
[2021-04-07] MEDS: SPIRONOLACTONE 25MG TABLET PO SCH (09:16)
[2021-04-07] MEDS ORDERED: INFLUENZA VACCINE 05/PF 0.5 ML SYRINGE IM ONE (10:00)
[2021-04-07 12:00] VITALS: BP 124/70
[2021-04-07 16:00] VITALS: BP 111/74
[2021-04-07 20:00] VITALS: BP 125/68
[2021-04-07] MEDS: CARVEDILOL 3.125 MG TABLET PO SCH (21:19)
[2021-04-07] MEDS: ATORVASTATIN CALCIUM 20MG TABLET PO SCH (21:19)
[2021-04-07] MEDS: GUAIFENESIN/CODEINE 200-20MG/10ML UDC PO PRN (21:20)
[2021-04-08] VITALS: BP 93/53
[2021-04-08 04:00] VITALS: BP 109/84
[2021-04-08 08:00] VITALS: BP 115/72
[2021-04-08 08:26] VITALS: BP 115/72
[2021-04-08] MEDS: IPRATROPIUM/ALBUTEROL 0.5-3(2.5)MG/3ML NEB HHN PRN (08:59)
[2021-04-08] MEDS ORDERED: FUROSEMIDE 40MG/4ML VIAL IVP SCH (09:00)
[2021-04-08] MEDS: SPIRONOLACTONE 25MG TABLET PO SCH (09:01)
[2021-04-08] MEDS: CARVEDILOL 3.125 MG TABLET PO SCH (09:01)
[2021-04-08] MEDS: ASPIRIN 81MG EC TABLET PO SCH (09:02)
[2021-04-08] MEDS: APIXABAN 5 MG TABLET PO SCH (09:02)
[2021-04-08] MEDS: AMIODARONE HCL 200 MG TABLET PO SCH (09:03)
== END 2021-04-08 14:15 | disposition home or self-care (01) | DRG 291 ==
LOC: ER 12:17 → 8WST 17:43 → ENRESERV 20:51 → 8WST 04-06 13:52
PROVIDERS: ADMIT Internal Medicine; ATTEND Internal Medicine
DX: I13.0 Hypertensive heart and chronic kidney disease with heart failure and stage 1 through stage 4 chronic kidney disease, or unspecified chronic kidney disease (principal); I50.23 Acute on chronic systolic (congestive) heart failure; I48.20 Chronic atrial fibrillation, unspecified; N17.9 Acute kidney failure, unspecified; I95.9 Hypotension, unspecified; Z20.822 Contact with and (suspected) exposure to COVID-19; I42.9 Cardiomyopathy, unspecified; J44.9 Chronic obstructive pulmonary disease, unspecified; R06.89 Other abnormalities of breathing; N18.9 Chronic kidney disease, unspecified; Z82.49 Family history of ischemic heart disease and other diseases of the circulatory system; Z91.19 Patient's noncompliance with other medical treatment and regimen; Z79.01 Long term (current) use of anticoagulants; Z79.82 Long term (current) use of aspirin; Z79.899 Other long term (current) drug therapy; F14.11 Cocaine abuse, in remission
CPT/HCPCS: 36415; 71045; 80048; 80053; 80305; 83735; 83880; 84484; 84550; 85025; 87426; 93005; 94640; 99285; J1940; J2405

== ENCOUNTER 2021-11-21 20:40 | Inpatient (IN) | payer MEDICARE, MEDICAID ==
[~2021-11-21] VITALS: Ht 180.3 cm; Wt 61.3 kg
[~2021-11-21 20:40] MED LIST changes: +APIX5TAB PO; +FURO-151 PO; +LISI10TA26 PO; +OMEP10CA5 PO
[2021-11-22 01:51] LABS: HEMATOCRIT. 40.7 % (42.0-52.0); HEMOGLOBIN. 13.4 g/dL (14.0-18.0); MEAN CORPUSCULAR HEMOGLOBIN 30.5 pg (28.0-32.0); MEAN PLATELET VOLUME 9.1 fl (7.4-10.4); PLATELET 197 x1000/uL (130-400); RED BLOOD CELL COUNT 4.38 mill/uL (4.7-6.1); RED CELL DISTRIBUTION WIDTH 15.8 % (11.6-14.6)
[2021-11-22 01:56] LABS: CHLORIDE 102 mEq/L (98-107)
[2021-11-22] MEDS ORDERED: ASPIRIN 325MG TABLET PO ONE (02:30)
[2021-11-22 03:09] LABS: PLATELET ESTIMATE NORMAL
[2021-11-22 06:45] VITALS: BP 121/54
[2021-11-22] MEDS ORDERED: KETOROLAC 15MG/ML VIAL IV PRN (07:30)
[2021-11-22] MEDS ORDERED: IPRATROPIUM/ALBUTEROL 0.5-3(2.5)MG/3ML NEB NEB PRN (07:30)
[2021-11-22] MEDS ORDERED: NITROGLYCERIN 0.4MG TABLET SL SL PRN (07:30)
[2021-11-22] MEDS ORDERED: MAGNESIUM/ALUMINUM HYDROXIDE/SIMETHICONE 30ML UDC PO PRN (07:30)
[2021-11-22] MEDS ORDERED: CLONIDINE 0.1MG TABLET PO PRN (07:30)
[2021-11-22] MEDS ORDERED: DOCUSATE SODIUM 100MG CAPSULE PO PRN (07:30)
[2021-11-22] MEDS ORDERED: ONDANSETRON HCL 4MG/2ML INJ IV PRN (07:30)
[2021-11-22] MEDS ORDERED: ACETAMINOPHEN 325MG TABLET PO PRN ×2 (07:30)
[2021-11-22] MEDS ORDERED: ZOLPIDEM TARTRATE 5MG TABLET PO PRN (07:30)
[2021-11-22] MEDS ORDERED: GUAIFENESIN 200MG/10ML SUGAR FREE UDC PO PRN (07:30)
[2021-11-22 08:00] VITALS: BP 114/71
[2021-11-22] MEDS: FUROSEMIDE 40MG/4ML VIAL IVP SCH ×2 (10:44→20:57)
[2021-11-22] MEDS: ASPIRIN 81MG EC TABLET PO SCH (10:44)
[2021-11-22] MEDS: AMIODARONE HCL 200 MG TABLET PO SCH (10:44)
[2021-11-22] MEDS: FAMOTIDINE 20MG TABLET PO SCH (10:45)
[2021-11-22] MEDS: SPIRONOLACTONE 25MG TABLET PO SCH ×2 (10:46→20:56)
[2021-11-22 11:33] LABS: ETHANOL BLOOD < 10 mg/dL; HDL CHOLESTEROL 51 mg/dL (40-59); LDL CHOLESTEROL 97 mg/dL (5-100); T4 FREE 1.16 ng/dL (0.76-1.46); TOTAL IRON BINDING CAPACITY 448 ug/dL (250-450)
[2021-11-22 12:00] VITALS: BP 110/80
[2021-11-22 13:04] LABS: FOLIC ACID (FOLATE) SERUM 15.9 ng/mL (>5.38)
[2021-11-22 16:00] VITALS: BP 106/80
[2021-11-22 16:45] LABS: CREATINE KINASE MB FRACTION 3.6 ng/mL (0.5-3.6)
[2021-11-22 17:27] LABS: *AMPHETAMINES SCREEN URINE NEGATIVE (NEGATIVE); *BARBITURATES SCREEN URINE NEGATIVE (NEGATIVE); *BENZODIAZEPINES SCREEN URINE NEGATIVE (NEGATIVE); *COCAINE SCREEN URINE PRESUMTIVE POSITIVE (NEGATIVE); CANNABINOID URINE SCREEN NEGATIVE (NEGATIVE); METHADONE URINE SCREEN NEGATIVE (NEGATIVE); OPIATES URINE SCREEN NEGATIVE (NEGATIVE); PHENCYCLIDINE URINE SCREEN NEGATIVE (NEGATIVE)
[2021-11-22] MEDS: APIXABAN 5 MG TABLET PO SCH (17:38)
[2021-11-22 20:00] VITALS: BP 129/93
[2021-11-23] VITALS: BP 118/83
[2021-11-23 00:10] LABS: CREATINE KINASE MB FRACTION 3.4 ng/mL (0.5-3.6)
[2021-11-23 04:00] VITALS: BP 121/82
[2021-11-23] MEDS: APIXABAN 5 MG TABLET PO SCH ×2 (04:58→17:12)
[2021-11-23 08:00] VITALS: BP 110/75
[2021-11-23 08:30] LABS: HEMATOCRIT. 38.5 % (42.0-52.0); HEMOGLOBIN. 12.9 g/dL (14.0-18.0); MEAN CORPUSCULAR HEMOGLOBIN 30.8 pg (28.0-32.0); MEAN CORPUSCULAR VOLUME 92.3 fL (80.0-94.0); MEAN PLATELET VOLUME 8.9 fl (7.4-10.4); PLATELET 173 x1000/uL (130-400); RED BLOOD CELL COUNT 4.17 mill/uL (4.7-6.1); RED CELL DISTRIBUTION WIDTH 15.2 % (11.6-14.6)
[2021-11-23 08:38] LABS: CHLORIDE 103 mEq/L (98-107)
[2021-11-23 08:49] LABS: PHOSPHORUS 3.8 mg/dL (2.5-4.9)
[2021-11-23] MEDS: FUROSEMIDE 40MG/4ML VIAL IVP SCH ×2 (08:58→21:03)
[2021-11-23] MEDS: ASPIRIN 81MG EC TABLET PO SCH (08:58)
[2021-11-23] MEDS: AMIODARONE HCL 200 MG TABLET PO SCH (08:59)
[2021-11-23] MEDS: SPIRONOLACTONE 25MG TABLET PO SCH ×2 (08:59→21:03)
[2021-11-23] MEDS: FAMOTIDINE 20MG TABLET PO SCH (08:59)
[2021-11-23 12:00] VITALS: BP 101/72
[2021-11-23 13:13] LABS: PLATELET ESTIMATE NORMAL
[2021-11-23 16:00] VITALS: BP 129/82
[2021-11-23 20:51] VITALS: BP 105/82
[2021-11-24] VITALS: BP 92/64
[2021-11-24 04:00] VITALS: BP 127/67
[2021-11-24] MEDS: APIXABAN 5 MG TABLET PO SCH ×2 (06:09→17:14)
[2021-11-24 07:45] VITALS: BP 93/72
[2021-11-24] MEDS: AMIODARONE HCL 200 MG TABLET PO SCH (08:25)
[2021-11-24] MEDS: SPIRONOLACTONE 25MG TABLET PO SCH ×2 (08:25→21:37)
[2021-11-24] MEDS: FAMOTIDINE 20MG TABLET PO SCH (08:25)
[2021-11-24] MEDS: ASPIRIN 81MG EC TABLET PO SCH (08:25)
[2021-11-24 11:51] VITALS: BP 106/72
[2021-11-24] MEDS: FUROSEMIDE 40MG/4ML VIAL IVP SCH ×2 (12:16→21:00)
[2021-11-24 15:53] VITALS: BP 95/67
[2021-11-24 20:00] VITALS: BP 120/78
[2021-11-25] VITALS: BP 111/84
[2021-11-25 04:00] VITALS: BP 118/76
[2021-11-25] MEDS: APIXABAN 5 MG TABLET PO SCH (05:47)
[2021-11-25 08:00] VITALS: BP 105/77
[2021-11-25] MEDS: FUROSEMIDE 40MG/4ML VIAL IVP SCH (09:00)
[2021-11-25] MEDS: AMIODARONE HCL 200 MG TABLET PO SCH (09:00)
[2021-11-25] MEDS: ASPIRIN 81MG EC TABLET PO SCH (09:11)
[2021-11-25] MEDS: FAMOTIDINE 20MG TABLET PO SCH (09:23)
[2021-11-25] MEDS: SPIRONOLACTONE 25MG TABLET PO SCH (09:24)
[2021-11-25] MEDS ORDERED: COR3 MT (11:30)
[2021-11-25] MEDS ORDERED: FURO40TA5 PO (11:30)
[2021-11-25] MEDS ORDERED: FAMO-135 MT (11:30)
[2021-11-25] MEDS ORDERED: ASPI-1497 PO (11:30)
[2021-11-25] MEDS ORDERED: AMI2 PO (11:30)
[2021-11-25] MEDS ORDERED: LOSA25TA26 MT (11:30)
[2021-11-25] MEDS ORDERED: APIX5TAB PO (11:30)
[2021-11-25] MEDS ORDERED: SPIR25TA MT (11:30)
[2021-11-25 12:00] VITALS: BP 121/90
[2021-11-25 12:23] VITALS: BP 121/90
== END 2021-11-25 13:30 | disposition home or self-care (01) | DRG 291 ==
LOC: ER 20:40 → 8WST 11-22 03:30 → ENRESERV 11-22 06:00
PROVIDERS: ADMIT Internal Medicine; ATTEND Internal Medicine
DX: I11.0 Hypertensive heart disease with heart failure (principal); I50.23 Acute on chronic systolic (congestive) heart failure; N17.0 Acute kidney failure with tubular necrosis; I48.91 Unspecified atrial fibrillation; I25.10 Atherosclerotic heart disease of native coronary artery without angina pectoris; D50.9 Iron deficiency anemia, unspecified; E11.9 Type 2 diabetes mellitus without complications; I95.9 Hypotension, unspecified; R74.01 Elevation of levels of liver transaminase levels; F14.90 Cocaine use, unspecified, uncomplicated; Z59.00 Homelessness unspecified; Z79.899 Other long term (current) drug therapy; Z82.49 Family history of ischemic heart disease and other diseases of the circulatory system
CPT/HCPCS: 36415; 71045; 80053; 80061; 80305; 80320; 82550; 82553; 82607; 82746; 83036; 83540; 83550; 83735; 83880; 84100; 84439; 84443; 84484; 85025; 93005; 93306; 93970; 97161; 99285; J1940; G0480

== ENCOUNTER 2022-02-21 12:19 | Inpatient (IN) | payer MEDICARE, MEDICAID ==
[~2022-02-21] VITALS: Ht 180.3 cm; Wt 68.0 kg
[~2022-02-21 12:19] MED LIST changes: -APIX2.5T PO; -COR12 PO; +COR3 MT; -COR6 PO; -DOCU-138 MT; +FAMO-135 MT; -FERR325T6 MT; -FURO-151 PO; -LISI10TA26 PO; -OMEP10CA5 PO; -POTA-189 PO; +SPIR25TA MT
[2022-02-21] MEDS ORDERED: FUROSEMIDE 40MG/4ML VIAL IVP ONE (17:30)
[2022-02-21 17:46] LABS: BASOPHILS % 0.5 % (0.0-2.0); EOSINOPHILS % 0.5 % (0.0-5.0); HEMATOCRIT. 44.7 % (42.0-52.0); LYMPHOCYTES % 21.4 % (20.0-50.0); MEAN CORPUSCULAR HEMOGLOBIN 31.4 pg (28.0-32.0); MEAN CORPUSCULAR VOLUME 93.6 fL (80.0-94.0); MEAN PLATELET VOLUME 8.5 fl (7.4-10.4); MONOCYTES % 9.6 % (2.0-8.0); PLATELET 164 x1000/uL (130-400); RED BLOOD CELL COUNT 4.78 mill/uL (4.7-6.1); RED CELL DISTRIBUTION WIDTH 18.3 % (11.6-14.6)
[2022-02-21 21:03] LABS: CHLORIDE 107 mEq/L (98-107)
[2022-02-22] VITALS (8 sets, daily range): BP systolic 115–136; BP diastolic 62–85
[2022-02-22] MEDS ORDERED: INFLUENZA VACCINE 05/PF 0.5 ML SYRINGE IM ONE (06:00)
[2022-02-22] MEDS: FUROSEMIDE 40MG/4ML VIAL IVP SCH ×2 (07:51→09:00)
[2022-02-22] MEDS ORDERED: ONDANSETRON HCL 4MG/2ML INJ IV PRN (08:15)
[2022-02-22] MEDS ORDERED: ACETAMINOPHEN 325MG TABLET PO PRN (08:15)
[2022-02-22] MEDS: CARVEDILOL 6.25 MG TABLET PO SCH ×2 (09:46→20:53)
[2022-02-22] MEDS: LOSARTAN POTASSIUM 25 MG TABLET PO SCH (09:46)
[2022-02-22] MEDS: ENOXAPARIN 80MG/0.8ML SYR SUBCUT SCH ×2 (11:13→20:51)
[2022-02-22 11:17] LABS: *AMPHETAMINES SCREEN URINE NEGATIVE (NEGATIVE); *BARBITURATES SCREEN URINE NEGATIVE (NEGATIVE); *BENZODIAZEPINES SCREEN URINE NEGATIVE (NEGATIVE); *COCAINE SCREEN URINE PRESUMTIVE POSITIVE (NEGATIVE); CANNABINOID URINE SCREEN NEGATIVE (NEGATIVE); METHADONE URINE SCREEN NEGATIVE (NEGATIVE); OPIATES URINE SCREEN NEGATIVE (NEGATIVE); PHENCYCLIDINE URINE SCREEN NEGATIVE (NEGATIVE)
[2022-02-23] VITALS (7 sets, daily range): BP systolic 98–119; BP diastolic 55–73
[2022-02-23 08:03] LABS: BASOPHILS % 0.5 % (0.0-2.0); HEMATOCRIT. 38.6 % (42.0-52.0); HEMOGLOBIN. 12.9 g/dL (14.0-18.0); MEAN CORPUSCULAR HEMOGLOBIN 31.4 pg (28.0-32.0); MEAN CORPUSCULAR VOLUME 93.7 fL (80.0-94.0); MEAN PLATELET VOLUME 9.1 fl (7.4-10.4); MONOCYTES % 11.8 % (2.0-8.0); NEUTROPHILS % 72.7 % (40.0-76.0); PLATELET 127 x1000/uL (130-400); RED BLOOD CELL COUNT 4.12 mill/uL (4.7-6.1); RED CELL DISTRIBUTION WIDTH 16.2 % (11.6-14.6)
[2022-02-23 08:05] LABS: INR 1.3; PROTHROMBIN TIME 13.4 sec (9.6-11.0)
[2022-02-23] MEDS: FUROSEMIDE 40MG/4ML VIAL IVP SCH (08:07)
[2022-02-23] MEDS: ENOXAPARIN 80MG/0.8ML SYR SUBCUT SCH ×2 (08:08→21:20)
[2022-02-23] MEDS: CARVEDILOL 6.25 MG TABLET PO SCH ×2 (08:08→21:20)
[2022-02-23] MEDS: LOSARTAN POTASSIUM 25 MG TABLET PO SCH (08:08)
[2022-02-23] MEDS ORDERED: SPIR25TA MT (16:21)
[2022-02-23] MEDS ORDERED: APIX5TAB PO (16:21)
[2022-02-23] MEDS ORDERED: COR3 MT (16:21)
[2022-02-23] MEDS ORDERED: LOSA25TA26 MT (16:21)
[2022-02-24] VITALS: BP 107/64
[2022-02-24 04:00] VITALS: BP 122/64
[2022-02-24 08:00] VITALS: BP 114/71
[2022-02-24] MEDS: CARVEDILOL 6.25 MG TABLET PO SCH (09:22)
[2022-02-24] MEDS: FUROSEMIDE 40MG/4ML VIAL IVP SCH (09:22)
[2022-02-24] MEDS: LOSARTAN POTASSIUM 25 MG TABLET PO SCH (09:22)
[2022-02-24] MEDS: ENOXAPARIN 80MG/0.8ML SYR SUBCUT SCH (09:22)
[2022-02-24 12:05] VITALS: BP 114/70
[2022-02-24 16:34] VITALS: BP 114/70
[2022-02-24] MEDS ORDERED: CARVEDILOL 6.25 MG TABLET PO SCH (21:00)
== END 2022-02-24 17:30 | disposition home or self-care (01) | DRG 291 ==
LOC: ER 12:19 → MICUSO 22:05 → EDBEDREQTM 22:16 → EDBEDREQ 22:16 → 3WST 02-22 03:16
PROVIDERS: ADMIT Internal Medicine; ATTEND Internal Medicine
DX: I11.0 Hypertensive heart disease with heart failure (principal); I50.23 Acute on chronic systolic (congestive) heart failure; N17.0 Acute kidney failure with tubular necrosis; E44.1 Mild protein-calorie malnutrition; I48.91 Unspecified atrial fibrillation; I42.9 Cardiomyopathy, unspecified; F14.10 Cocaine abuse, uncomplicated; Z82.49 Family history of ischemic heart disease and other diseases of the circulatory system; Z91.199 Patient's noncompliance with other medical treatment and regimen due to unspecified reason; Z79.899 Other long term (current) drug therapy; Z79.01 Long term (current) use of anticoagulants; Z79.82 Long term (current) use of aspirin; Z68.20 Body mass index [BMI] 20.0-20.9, adult
CPT/HCPCS: 36415; 71045; 80048; 80053; 80305; 83880; 84484; 85025; 90686; 93005; 93306; 99291; J1650; J1940

== ENCOUNTER 2022-04-22 22:39 | Inpatient (IN) | payer MEDICARE, MEDICAID ==
[~2022-04-22] VITALS: Ht 180.3 cm; Wt 75.7 kg
[~2022-04-22 22:39] MED LIST changes: +APIX5TAB MT; +CARV3.1242 MT; +FURO-151 MT; +SPIR25TA6 MT
[2022-04-23 00:10] LABS: CHLORIDE 102 mEq/L (98-107)
[2022-04-23 00:15] LABS: INR 1.3; PROTHROMBIN TIME 13.9 sec (9.6-11.0)
[2022-04-23 00:20] LABS: EOSINOPHILS % 1.8 % (0.0-5.0); HEMATOCRIT. 42.1 % (42.0-52.0); HEMOGLOBIN. 13.9 g/dL (14.0-18.0); LYMPHOCYTES % 22.4 % (20.0-50.0); MEAN CORPUSCULAR HEMOGLOBIN 30.1 pg (28.0-32.0); MEAN CORPUSCULAR VOLUME 91.1 fL (80.0-94.0); MEAN PLATELET VOLUME 8.7 fl (7.4-10.4); MONOCYTES % 12.1 % (2.0-8.0); NEUTROPHILS % 62.7 % (40.0-76.0); PLATELET 194 x1000/uL (130-400); RED BLOOD CELL COUNT 4.62 mill/uL (4.7-6.1); RED CELL DISTRIBUTION WIDTH 16.2 % (11.6-14.6)
[2022-04-23 00:21] LABS: ETHANOL BLOOD < 10 mg/dL
[2022-04-23] MEDS ORDERED: FUROSEMIDE 100MG/10ML VIAL IVP ONE (01:45)
[2022-04-23] MEDS ORDERED: FUROSEMIDE 100MG/10ML VIAL IVP NR (05:15)
[2022-04-23 08:00] LABS: CLARITY URINE CLEAR (CLEAR); COLOR URINE YELLOW (YELLOW); KETONES URINE NEGATIVE (NEGATIVE); LEUKOCYTE ESTERASE URINE NEGATIVE (NEGATIVE); NITRITE URINE NEGATIVE (NEGATIVE); OCCULT BLOOD URINE NEGATIVE (NEGATIVE); PROTEIN URINE NEGATIVE (NEGATIVE); SPECIFIC GRAVITY URINE 1.008 (1.005-1.030); UROBILINOGEN URINE 0.2 E.U./dL (0.2-1.0)
[2022-04-23] MEDS ORDERED: ACETAMINOPHEN 325MG TABLET PO PRN ×2 (08:15)
[2022-04-23] MEDS ORDERED: MAGNESIUM/ALUMINUM HYDROXIDE/SIMETHICONE 30ML UDC PO PRN (08:15)
[2022-04-23] MEDS ORDERED: ENOXAPARIN 40MG/0.4ML SYR SUBCUT SCH (08:15)
[2022-04-23] MEDS ORDERED: HYDROCODONE/ACETAMINOPHEN 5/325MG TABLET PO PRN (08:15)
[2022-04-23] MEDS ORDERED: GUAIFENESIN 200MG/10ML SUGAR FREE UDC PO PRN (08:15)
[2022-04-23] MEDS ORDERED: ONDANSETRON HCL 4MG/2ML INJ IV PRN (08:15)
[2022-04-23] MEDS ORDERED: IPRATROPIUM/ALBUTEROL 0.5-3(2.5)MG/3ML NEB NEB PRN (08:15)
[2022-04-23] MEDS ORDERED: DOCUSATE SODIUM 100MG CAPSULE PO PRN (08:15)
[2022-04-23] MEDS ORDERED: CLONIDINE 0.1MG TABLET PO PRN (08:15)
[2022-04-23] MEDS ORDERED: NALOXONE HCL 0.4MG/ML VIAL IV PRN (08:30)
[2022-04-23] MEDS: APIXABAN 5 MG TABLET PO SCH ×2 (09:19→21:27)
[2022-04-23] MEDS: AMIODARONE HCL 200 MG TABLET PO SCH ×2 (09:20→21:27)
[2022-04-23 10:00] VITALS: BP 119/92
[2022-04-23 10:10] LABS: *AMPHETAMINES SCREEN URINE NEGATIVE (NEGATIVE); *BARBITURATES SCREEN URINE NEGATIVE (NEGATIVE); *BENZODIAZEPINES SCREEN URINE NEGATIVE (NEGATIVE); *COCAINE SCREEN URINE PRESUMTIVE POSITIVE (NEGATIVE); CANNABINOID URINE SCREEN NEGATIVE (NEGATIVE); METHADONE URINE SCREEN NEGATIVE (NEGATIVE); OPIATES URINE SCREEN NEGATIVE (NEGATIVE); PHENCYCLIDINE URINE SCREEN NEGATIVE (NEGATIVE)
[2022-04-23 10:26] VITALS: BP 119/92
[2022-04-23 16:00] VITALS: BP 113/80
[2022-04-23 20:00] VITALS: BP 114/83
[2022-04-24] VITALS: BP 115/83
[2022-04-24 04:00] VITALS: BP 112/81
[2022-04-24 07:32] LABS: BASOPHILS % 0.8 % (0.0-2.0); EOSINOPHILS % 0.8 % (0.0-5.0); HEMATOCRIT. 40.6 % (42.0-52.0); HEMOGLOBIN. 13.4 g/dL (14.0-18.0); LYMPHOCYTES % 17.3 % (20.0-50.0); MEAN CORPUSCULAR HEMOGLOBIN 30.1 pg (28.0-32.0); MEAN CORPUSCULAR VOLUME 91.1 fL (80.0-94.0); MEAN PLATELET VOLUME 9.2 fl (7.4-10.4); MONOCYTES % 10.7 % (2.0-8.0); NEUTROPHILS % 70.4 % (40.0-76.0); PLATELET 193 x1000/uL (130-400); RED BLOOD CELL COUNT 4.46 mill/uL (4.7-6.1); RED CELL DISTRIBUTION WIDTH 16.2 % (11.6-14.6)
[2022-04-24 08:00] VITALS: BP 106/84
[2022-04-24 08:42] LABS: CHLORIDE 100 mEq/L (98-107)
[2022-04-24 09:11] LABS: VITAMIN B12 SERUM 584 pg/mL (211-911)
[2022-04-24 09:13] LABS: HDL CHOLESTEROL 42 mg/dL (40-59); LDL CHOLESTEROL 102 mg/dL (5-100); T4 FREE 1.54 ng/dL (0.76-1.46)
[2022-04-24] MEDS: AMIODARONE HCL 200 MG TABLET PO SCH ×2 (09:23→20:14)
[2022-04-24] MEDS: APIXABAN 5 MG TABLET PO SCH ×2 (09:23→20:14)
[2022-04-24] MEDS: LOSARTAN POTASSIUM 25 MG TABLET PO SCH (10:00)
[2022-04-24 12:00] VITALS: BP 111/64
[2022-04-24 16:00] VITALS: BP 116/95
[2022-04-24] MEDS ORDERED: FUROSEMIDE 40MG/4ML VIAL IVP SCH (17:00)
[2022-04-24 20:00] VITALS: BP 111/86
[2022-04-24] MEDS ORDERED: ALBUTEROL (0.083%) 2.5MG/3ML NEB HHN PRN (21:15)
[2022-04-24] MEDS ORDERED: IPRATROPIUM BROMIDE (0.02%) 0.5MG/2.5ML NEB HHN PRN (21:15)
[2022-04-25] VITALS: BP 112/88
[2022-04-25 08:00] VITALS: BP_SYST 115; BP_SYST 15; BP_DIAS 89
[2022-04-25] MEDS: APIXABAN 5 MG TABLET PO SCH (08:27)
[2022-04-25] MEDS: LOSARTAN POTASSIUM 25 MG TABLET PO SCH (08:28)
[2022-04-25] MEDS: AMIODARONE HCL 200 MG TABLET PO SCH (08:28)
[2022-04-25] MEDS ORDERED: FUROSEMIDE 40MG TABLET PO SCH (09:00)
[2022-04-25 12:00] VITALS: BP 118/59
[2022-04-25] MEDS ORDERED: ASPI-1497 PO (13:16)
[2022-04-25] MEDS ORDERED: AMI2 PO (13:16)
[2022-04-25] MEDS ORDERED: FURO40TA5 PO (13:16)
[2022-04-25] MEDS ORDERED: SPIR25TA PO (13:17)
[2022-04-25] MEDS ORDERED: APIX5TAB PO (13:17)
[2022-04-25] MEDS ORDERED: LOSA25TA26 PO (13:17)
[2022-04-25 15:43] VITALS: BP 115/89
== END 2022-04-25 17:30 | disposition home health service (06) | DRG 280 ==
LOC: ER 22:39 → 7WST 04-23 02:46 → SUPCPDRO 04-23 07:31
PROVIDERS: ADMIT Internal Medicine; ATTEND Internal Medicine
DX: I11.0 Hypertensive heart disease with heart failure (principal); I21.4 Non-ST elevation (NSTEMI) myocardial infarction; I50.23 Acute on chronic systolic (congestive) heart failure; I48.91 Unspecified atrial fibrillation; I37.1 Nonrheumatic pulmonary valve insufficiency; I34.0 Nonrheumatic mitral (valve) insufficiency; I35.1 Nonrheumatic aortic (valve) insufficiency; I07.1 Rheumatic tricuspid insufficiency; F14.10 Cocaine abuse, uncomplicated; Z79.899 Other long term (current) drug therapy; Z79.01 Long term (current) use of anticoagulants; Z82.49 Family history of ischemic heart disease and other diseases of the circulatory system
CPT/HCPCS: 36415; 71045; 80048; 80053; 80061; 80305; 80320; 81003; 82607; 82746; 83036; 83735; 83880; 84100; 84439; 84443; 84484; 85025; 85379; 93005; 93306; 99285; C1893; J1940; G0480

== ENCOUNTER 2025-01-16 15:31 | Emergency (ER) | payer MEDICARE, OTHER ==
[~2025-01-16] VITALS: Ht 180.3 cm; Wt 72.0 kg
[~2025-01-16 15:31] MED LIST changes: -APIX5TAB MT; -CARV3.1242 MT; -COR3 MT; -FAMO-135 MT; +FAMO-135 PO; -FURO-151 MT; +LIP40 PO; -LOSA25TA26 MT; +LOSA25TA26 PO; -SPIR25TA MT; +SPIR25TA PO; -SPIR25TA6 MT
[2025-01-16 15:44] VITALS: BP 123/85; TEMP 36.7; O2SAT 100
[2025-01-16 15:45] VITALS: PULSE 68; RESP 18; O2SAT 99
[2025-01-16 16:59] LABS: BASOPHILS % 0.7 % (0.0-2.0); EOSINOPHILS % 1.6 % (0.0-5.0); HEMATOCRIT. 46.2 % (42.0-52.0); HEMOGLOBIN. 15.1 g/dL (14.0-18.0); LYMPHOCYTES % 18.6 % (20.0-50.0); MEAN PLATELET VOLUME 9.0 fl (7.4-10.4); MONOCYTES % 14.2 % (2.0-8.0); NEUTROPHILS % 64.9 % (40.0-76.0); PLATELET 180 x1000/uL (130-400); RED BLOOD CELL COUNT 4.71 mill/uL (4.7-6.1); RED CELL DISTRIBUTION WIDTH 14.7 % (11.6-14.6)
[2025-01-16 17:13] LABS: CREATININE 1.6 mg/dL (0.6-1.3); UREA NITROGEN BLOOD 28.0 mg/dL (9-23)
[2025-01-16] MEDS ORDERED: SODIUM ZIRCONIUM CYCLOSILICATE 10GM/PACKET PO NR (17:30)
== END 2025-01-16 18:05 | disposition left against medical advice (07) ==
LOC: ER 15:31
DX: R06.02 Shortness of breath (principal); I11.0 Hypertensive heart disease with heart failure; I50.9 Heart failure, unspecified; I48.91 Unspecified atrial fibrillation; Z98.890 Other specified postprocedural states; Z79.899 Other long term (current) drug therapy
CPT/HCPCS: 36415; 80048; 85025; 93005; 99281; 99284

== ENCOUNTER 2025-01-16 23:11 | Inpatient (IN) | payer MEDICARE, OTHER ==
[~2025-01-16] VITALS: Ht 180.3 cm; Wt 60.8 kg
[2025-01-16 23:13] VITALS: O2SAT 98
[2025-01-17] MEDS: FUROSEMIDE 40MG/4ML VIAL IV ONE (00:27)
[2025-01-17 00:28] LABS: BASOPHILS % 0.8 % (0.0-2.0); EOSINOPHILS % 2.5 % (0.0-5.0); HEMATOCRIT. 49.3 % (42.0-52.0); HEMOGLOBIN. 16.4 g/dL (14.0-18.0); LYMPHOCYTES % 24.6 % (20.0-50.0); MEAN PLATELET VOLUME 9.5 fl (7.4-10.4); MONOCYTES % 13.4 % (2.0-8.0); NEUTROPHILS % 58.7 % (40.0-76.0); PLATELET 204 x1000/uL (130-400); RED BLOOD CELL COUNT 5.08 mill/uL (4.7-6.1); RED CELL DISTRIBUTION WIDTH 14.9 % (11.6-14.6)
[2025-01-17 00:43] LABS: CREATININE 1.5 mg/dL (0.6-1.3); UREA NITROGEN BLOOD 32 mg/dL (9-23)
[2025-01-17 00:55] LABS: TROPONIN I HIGH SENSITIVITY 224 ng/L (3.0-53)
[2025-01-17] MEDS: METOPROLOL TARTRATE 25MG TABLET PO ONE (01:48)
[2025-01-17] MEDS: ASPIRIN 81MG TABLET PO ONE (01:52)
[2025-01-17] MEDS ORDERED: GUAIFENESIN 200MG/10ML SUGAR FREE UDC PO PRN (02:30)
[2025-01-17] MEDS ORDERED: IPRATROPIUM/ALBUTEROL 0.5-3(2.5)MG/3ML NEB HHN PRN (02:30)
[2025-01-17] MEDS ORDERED: MAGNESIUM/ALUMINUM HYDROXIDE/SIMETHICONE 30ML UDC PO PRN (02:30)
[2025-01-17] MEDS ORDERED: DOCUSATE SODIUM 100MG CAPSULE PO PRN (02:30)
[2025-01-17] MEDS ORDERED: ACETAMINOPHEN 325MG TABLET PO PRN ×2 (02:30)
[2025-01-17] MEDS ORDERED: ONDANSETRON HCL 4MG/2ML INJ IV PRN (02:30)
[2025-01-17 02:50] LABS: TROPONIN I HIGH SENSITIVITY 182 ng/L (3.0-53)
[2025-01-17 03:19] LABS: TROPONIN I HIGH SENSITIVITY 183 ng/L (3.0-53)
[2025-01-17 03:20] LABS: CLARITY URINE CLEAR (CLEAR); COLOR URINE YELLOW (YELLOW); GLUCOSE URINE NEGATIVE (NEGATIVE); KETONES URINE NEGATIVE (NEGATIVE); LEUKOCYTE ESTERASE URINE NEGATIVE (NEGATIVE); NITRITE URINE NEGATIVE (NEGATIVE); OCCULT BLOOD URINE NEGATIVE (NEGATIVE); PH URINE 5.5 (4.5-8.0); PROTEIN URINE NEGATIVE (NEGATIVE); SPECIFIC GRAVITY URINE 1.008 (1.005-1.030); UROBILINOGEN URINE 0.2 E.U./dL (0.2-1.0)
[2025-01-17 03:36] LABS: *AMPHETAMINES SCREEN URINE NEGATIVE (NEGATIVE); *BARBITURATES SCREEN URINE NEGATIVE (NEGATIVE); *BENZODIAZEPINES SCREEN URINE NEGATIVE (NEGATIVE); *COCAINE SCREEN URINE NEGATIVE (NEGATIVE); CANNABINOID URINE SCREEN NEGATIVE (NEGATIVE); ECSTASY MDMA SCREEN URINE NEGATIVE (NEGATIVE); METHADONE URINE SCREEN NEGATIVE (NEGATIVE); OPIATES URINE SCREEN NEGATIVE (NEGATIVE); PHENCYCLIDINE URINE SCREEN NEGATIVE (NEGATIVE)
[2025-01-17] MEDS: ENOXAPARIN 80MG/0.8ML SYR SUBCUT SCH (06:07)
[2025-01-17 08:00] VITALS: BP 114/88; PULSE 87; RESP 18; TEMP 36.4; O2SAT 99
[2025-01-17] MEDS: FUROSEMIDE 40MG/4ML VIAL IV SCH ×2 (08:05→19:12)
[2025-01-17] MEDS: ASPIRIN 81MG TABLET PO SCH (08:06)
[2025-01-17] MEDS: CARVEDILOL 3.125 MG TABLET PO SCH (08:06)
[2025-01-17] MEDS: SODIUM ZIRCONIUM CYCLOSILICATE 10GM/PACKET PO NR (08:06)
[2025-01-17] MEDS ORDERED: APIXABAN 5 MG TABLET PO SCH (09:00)
[2025-01-17 12:00] VITALS: BP 118/82; PULSE 85; RESP 18; TEMP 36.4; O2SAT 99
[2025-01-17 16:00] VITALS: BP_SYST 112; BP_SYST 118; BP_DIAS 85; PULSE 85; RESP 18; TEMP 36.4; O2SAT 99
[2025-01-17 20:00] VITALS: BP 131/65; PULSE 68; RESP 18; TEMP 36.1; O2SAT 96
[2025-01-17] MEDS: FAMOTIDINE 20MG TABLET PO SCH (20:24)
[2025-01-18] VITALS (7 sets, daily range): BP systolic 93–120; BP diastolic 45–89; PULSE 62–84; RESP 18; TEMP 35.9–36.4; O2SAT 98–100
[2025-01-18] MEDS: SODIUM CHLORIDE 0.9% 1,000 ML IV ONE (04:58)
[2025-01-18 07:15] LABS: CREATININE 1.3 mg/dL (0.6-1.3); TRIGLYCERIDE 68 mg/dL (0-150); UREA NITROGEN BLOOD 26 mg/dL (9-23)
[2025-01-18 07:16] LABS: LDL CHOLESTEROL 102 mg/dL (5-100)
[2025-01-18 07:17] LABS: ASPARTATE AMINOTRANSFERASE 22 IU/L (<34); BILIRUBIN DIRECT 0.5 mg/dL (<=3.0); BILIRUBIN TOTAL 1.5 mg/dL (0.1-1.0); PROTEIN TOTAL 5.9 g/dL (6.0-8.3)
[2025-01-18 07:19] LABS: BASOPHILS % 0.9 % (0.0-2.0); EOSINOPHILS % 5.1 % (0.0-5.0); HEMATOCRIT. 42.3 % (42.0-52.0); HEMOGLOBIN. 13.9 g/dL (14.0-18.0); LYMPHOCYTES % 23.2 % (20.0-50.0); MEAN PLATELET VOLUME 9.5 fl (7.4-10.4); MONOCYTES % 14.9 % (2.0-8.0); NEUTROPHILS % 55.9 % (40.0-76.0); PLATELET 159 x1000/uL (130-400); RED BLOOD CELL COUNT 4.37 mill/uL (4.7-6.1); RED CELL DISTRIBUTION WIDTH 14.7 % (11.6-14.6); T4 FREE 1.16 ng/dL (0.89-1.76)
[2025-01-18] MEDS: EMPAGLIFLOZIN 10MG TABLET PO SCH (08:37)
[2025-01-19] VITALS: BP 102/62; PULSE 80; PULSE 81; RESP 18; TEMP 36.1; O2SAT 98; O2SAT 99
[2025-01-19 04:00] VITALS: BP 91/58; PULSE 74; RESP 18; TEMP 36.5; O2SAT 99
[2025-01-19 08:00] VITALS: BP 114/58; PULSE 75; RESP 18; TEMP 35.7; O2SAT 99
[2025-01-19 12:00] VITALS: BP 102/77; PULSE 71; RESP 18; TEMP 36; O2SAT 98
[2025-01-19] MEDS: FUROSEMIDE 20MG/2ML VIAL IVP NR (14:41)
[2025-01-19 16:00] VITALS: BP 102/63; PULSE 56; RESP 18; TEMP 36.2; O2SAT 98
[2025-01-19 20:00] VITALS: BP 120/77; PULSE 44; RESP 18; TEMP 36.2; O2SAT 97
[2025-01-20] VITALS: BP 106/76; PULSE 83; RESP 17; TEMP 36.4; O2SAT 97
[2025-01-20 04:00] VITALS: BP 116/76; PULSE 74; RESP 18; TEMP 36.3; O2SAT 98
[2025-01-20 08:00] VITALS: BP 120/44; PULSE 43; RESP 15; TEMP 35.8; O2SAT 100
[2025-01-20] MEDS: LOSARTAN 25 MG TABLET PO SCH (09:00)
[2025-01-20 12:00] VITALS: BP 137/81; PULSE 88; RESP 16; TEMP 36.8; O2SAT 99
[2025-01-20 16:00] VITALS: BP 111/80; PULSE 75; RESP 15; TEMP 36.3; O2SAT 98
[2025-01-20] MEDS ORDERED: ASPI-1497 PO (16:45)
[2025-01-20] MEDS ORDERED: SPIR25TA PO (16:45)
[2025-01-20] MEDS ORDERED: EMPA10TA PO (16:45)
[2025-01-20] MEDS ORDERED: FURO40TA5 PO (16:45)
[2025-01-20] MEDS ORDERED: LIP40 PO (16:45)
[2025-01-20] MEDS ORDERED: LOSA25TA26 PO (16:45)
[2025-01-20] MEDS ORDERED: METO25TA6 PO (16:45)
[2025-01-20] MEDS ORDERED: APIX5TAB PO (16:45)
[2025-01-20] MEDS ORDERED: FAMO-135 PO (16:45)
[2025-01-20 17:39] VITALS: BP 137/71; PULSE 75; RESP 14; TEMP 98.6
[2025-01-20] MEDS ORDERED: METOPROLOL TARTRATE 25MG TABLET PO SCH (21:00)
== END 2025-01-20 18:30 | disposition home or self-care (01) | DRG 280 ==
LOC: ER 23:11 → 5WST 01-17 01:38 → EDBEDREQ 01-17 01:41 → EDBEDREQTM 01-17 01:41 → ENRESERV 01-17 04:38
PROVIDERS: ADMIT Internal Medicine; ATTEND Internal Medicine
DX: I21.4 Non-ST elevation (NSTEMI) myocardial infarction (principal); I50.23 Acute on chronic systolic (congestive) heart failure; I13.0 Hypertensive heart and chronic kidney disease with heart failure and stage 1 through stage 4 chronic kidney disease, or unspecified chronic kidney disease; N17.9 Acute kidney failure, unspecified; I42.8 Other cardiomyopathies; I48.91 Unspecified atrial fibrillation; I27.20 Pulmonary hypertension, unspecified; F14.10 Cocaine abuse, uncomplicated; N18.9 Chronic kidney disease, unspecified; E87.5 Hyperkalemia; Z79.82 Long term (current) use of aspirin; Z79.01 Long term (current) use of anticoagulants; Z79.899 Other long term (current) drug therapy
CPT/HCPCS: 36415; 71045; 80048; 80061; 80076; 80305; 81003; 83735; 83880; 84439; 84443; 84484; 85025; 93005; 93306; 93970; 96374; 99281; 99284; 99285; A4606; J1650; J1938